=== PATIENT | male | born 1980 | race Caucasian/White ===

== ENCOUNTER 2023-08-22 15:05 | Outpatient (AMB) | payer OTHER, SELFPAY ==
--- NOTE | 2023-08-22 15:10 | MHC.PC.OV ---
Vital Signs 08/22/23 15:12 Height 5 ft 8 in Weight 194 lb 4 oz BMI 29.5 BP 120/72 Blood Pressure Location Lt brachial Position Sitting Pulse 87 Pulse Source Pulse Oximeter Pulse Oximetry (%) 97 Oxygen Delivery Method Room Air Intake Visit Reasons: DIRECTOR DESIGN-Requesting Physical Exam Intake Note: Patient is here as new patient, he is concerned about burning sensation of right sided shoulder blade for 5 weeks. Allergies No Known Allergies Allergy (Verified 08/22/23 15:15) Medication List - Last Reconciled 08/22/23 by Hermilo Prieto MD No Known Home Meds Tobacco use date assessed: 08/22/23 Dental Screening Dental Screen Date: 08/22/23 Did you have a dental visit in the last 12 months?: Yes Did you have a dental problem in the last 6 months where you did not have access to dental care?: No Was dental information given to patient?: Patient has dentist HPI DIRECTOR DESIGN-Requesting Physical Exam HPI Details New patient Prior PCP:?Albertina Troncoso Last office visit/CPE: 6 mos. CPE Oct. Acute issue(s): R shoulder pain x5 weeks PMHx: Sleep apnea and uses CPAP, HLD on artovastatin 40mg. Recent carbon monoxide exposure - was seen at ED. SurgHx: [place] teeth FHx: Mom: HLD. Dad: HTN. Brother: HTN SocHx: Nonsmoker. EtOH 1-2 drinks a week. No drugs. [facility] Medical History (Updated 08/22/23 @ 16:04 by Hermilo Prieto MD) High blood cholesterol Sleep apnea Surgical History (Updated 08/22/23 @ 15:20 by Liza Gale CMA) [place] teeth extracted Family History (Updated 08/22/23 @ 15:23 by Liza Gale CMA) Mother High cholesterol Father High blood pressure Arthritis Brother High blood pressure Social History Housing: Apartment Patient Tobacco Use Status: Never used Tobacco e-Cigarette/Vaping Use: Never Used service: No Current occupational status: employed Current occupation: pest control Cognitive needs: No Hearing needs: No Vision needs: Yes (Patient wears precription glasses.) Questionnaire PHQ-9 Over the last 2 weeks, how often have you been bothered by any of the following problems? 1. Little interest or pleasure in doing things: not at all 2. Feeling down, depressed, or hopeless: not at all 3. Trouble falling or staying asleep, or sleeping too much: several days 4. Feeling tired or having little energy: several days 5. Poor appetite or overeating: not at all 6. Feeling bad about yourself - or that you are a failure or have let yourself or your family down: not at all 7. Trouble concentrating on things, such as reading the newspaper or watching television: not at all 8. Moving or speaking so slowly that other people could have noticed. Or the opposite - being so fidgety or restless that you have been moving around a lot more than usual: not at all 9. Thoughts that you would be better off or of hurting yourself in some way: not at all Total score: 2 Depression Screening Interpretation: Negative Depression Screening Done: Yes 49171 - PHQ-9 Billing: Yes Source: Developed by Drs. Ming Draper, Marycarmen Foley, Flakito Bowen and colleagues, with an educational faraz from [employer]. Thrive Questionnaire Date Thrive assessed: 08/22/23 I am a: Patient What is your living situation today?: I have a steady place to live Within the past 12 months, did the food you bought not last and you didn't have the money to get more?: Never true Within the past 12 months, did you worry whether your food would run out before you got money to buy more?: Never true Do you have trouble paying for medicines?: No Do you have trouble getting transportation to medical appointments?: No Do you have trouble paying your heating and electricity bill?: No Do you have trouble taking care of your child, family member or friend?: No Do you have trouble with day-to-day activities such as bathing, preparing meals, shopping, managing finances, etc.?: No Are you currently unemployed and looking for a job?: No Are you interested in more education?: Yes THRIVE Score: 0 ISHAAN-7 AMB Questionnaire ISHAAN-7 Date ISHAAN - 7 assessed: 08/22/23 Feeling nervous, anxious, or on edge: 2 = More than half the days Not being able to stop or control worryin = Several days Worrying too much about different things: 1 = Several days Trouble relaxin = Several days Being so restless that it is hard to sit still: 0 = Not at all Becoming easily annoyed or irritable: 2 = More than half the days Feeling afraid as if something awful might happen: 2 = More than half the days Total ISHAAN-7 score (0-4 normal; 5-9 mild; 10-14 moderate; 15-21 severe): 9 Source: Developed by Drs. Ming Draper, Marycarmen Foley, Flakito Bowen and colleagues, with an educational faraz from [employer]. ISHAAN-7 Assessment Billing ISHAAN-7 Assessment Tool: ISHAAN-7 Assessment 29512 Review of Systems Const Denies chills, Denies fatigue, Denies fever(s), Denies headache(s) and Denies weakness ENT Denies dizziness and Denies headache(s) Card Denies chest pain, Denies lightheadedness, Denies dyspnea and Denies other (Palpitations) Resp Denies cough, Denies dyspnea, Denies wheezing and Denies other ( shortness of breath) Musc Denies numbness and Denies tingling Neuro Denies dizziness, Denies headache(s), Denies numbness, Denies tingling, Denies paresthesias and Denies weakness Psych Denies anxiety and Denies depression Endo Denies fatigue Aller/Immun Denies wheezing Physical exam (Primary Care) Vital Signs: Last Vital Signs Pulse 87 08/22/23 15:12 BP 120/72 08/22/23 15:12 Pulse Ox 97 08/22/23 15:12 Oxygen Delivery Method Room Air 08/22/23 15:12 BMI result Body Mass Index 29.5 Tobacco/Smoking Status: Tobacco use Status Tobacco use date assessed 08/22/23 08/22/23 15:31 Patient Tobacco Use Status Never used Tobacco 08/22/23 15:31 e-Cigarette/Vaping Use Never Used 08/22/23 15:31 PHQ-9: PHQ-9 Score PHQ-9: Total score 2 08/22/23 15:31 Depression Screening Interpretation: Negative Thrive Assessment: Date of Thrive Assessment Date Thrive assessed 08/22/23 08/22/23 15:31 Const General: no acute distress and well developed Nutritional Appearance: well nourished Orientation/consciousness: patient oriented x3 HENMT Head: Yes normocephalic and Yes atraumatic Eyes General: appearance normal, both eyes and all related structures Pupils: Equal, round and reactive pupils present EOM: EOMs intact bilaterally Resp Effort & Inspection: normal respiratory effort Auscultation: clear to auscultation bilaterally Cardio Rate: regular rate Rhythm: regular rhythm Heart sounds: S1 normal heart sound present, S2 normal heart sound present, no gallops, no murmurs and no rubs Neuro General: patient oriented x3 and gait normal Cranial nerves: Yes Equal, round and reactive pupils present Psych Affect: normal affect Assessment and Plan Assessment & Plan (1) Right shoulder pain: Code(s): M25.511 - Pain in right shoulder Plan: R shoulder pain?and?right?scapular?pain Check?x-ray NSAIDs,?ice/heat Only?gentle?stretching?until?he?start?physical?therapy Physical?therapy If?not?improving?will?refer?to?physiatry?or?Ortho (2) Pain of right scapula: Code(s): M89.8X1 - Other specified disorders of bone, shoulder Plan: Burning?pain?under?right?scapula Possible?dorsal?scapular?nerve?impingement vs subscapularis?muscle?strain Checking?x-rays?as?above?and?he?can?use?NSAIDs Referred?to?physical?therapy If?not?improving,?will?refer (3) Hyperlipidemia: Code(s): E78.5 - Hyperlipidemia, unspecified Plan: Patient?takes?atorvastatin?40?mg?daily Continue?atorvastatin?and?check?lipids (4) Sleep apnea: Code(s): G47.30 - Sleep apnea, unspecified Plan: Uses?CPAP?regularly Continue?CPAP (5) Laboratory exam ordered as part of routine general medical examination: Code(s): Z00.00 - Encounter for general adult medical examination without abnormal findings Plan: Check?labs Orders: Orders TSH reflex Free T4 Today Z00.00 - Encounter for general adult medical examination without abnormal findings UA and rflx microscopic Today Z00.00 - Encounter for general adult medical examination without abnormal findings XR shoulder RT min 2V Today M89.8X1 - Other specified disorders of bone, shoulder XR scapula RT Today M89.8X1 - Other specified disorders of bone, shoulder Comprehensive [place]. Panel Fast Today Z00.00 - Encounter for general adult medical examination without abnormal findings Lipid Panel Today Z00.00 - Encounter for general adult medical examination without abnormal findings Microalbumin, Random (w Creat) Today I10 - Essential (primary) hypertension Prostate Specific Antigen Scr Today Z12.5 - Encounter for screening for malignant neoplasm of prostate XR cervical spine 2V Today M89.8X1 - Other specified disorders of bone, shoulder Medications: New atorvastatin 40 mg PO DAILY 90 days 90 tabs 4RF meloxicam 15 mg PO DAILY 30 days 30 tabs 2RF Coding Level of Care Code New Pt Level 3 (19717) Diagnoses Right shoulder pain M25.511 Pain of right scapula M89.8X1 Hyperlipidemia E78.5 Sleep apnea G47.30 Laboratory exam ordered as part of routine general medical examination Z00.00 Additional Codes ISHAAN-7 Assessment Billing - ISHAAN-7 Assessment Tool: ISHAAN-7 Assessment 73338 ([id number])
[2023-08-22 15:12] VITALS: BP 120/72; PULSE 87; O2SAT 97; BMI 29.5
== END 2023-08-22 16:06 | disposition home or self-care (01) ==
PROVIDERS: PCP Family Medicine; Visit Provider Family Medicine
DX: M25.511 Pain in right shoulder (principal); M89.8X1 Other specified disorders of bone, shoulder; E78.5 Hyperlipidemia, unspecified; G47.30 Sleep apnea, unspecified; Z00.00 Encounter for general adult medical examination without abnormal findings
CPT/HCPCS: 99203

== ENCOUNTER 2023-08-23 08:43 | Outpatient (REF) | payer OTHER, SELFPAY ==
[2023-08-23 11:31] LABS: Appearance Urine Turbid; Color Urine Yellow; Glucose Urine UA Negative (Negative); Leukocyte Esterase Urine Negative (Negative); Nitrite Urine Negative (Negative); Specific Gravity - Urine 1.025 (1.005-1.025); Urine Blood Negative (Negative); Urine Ketones Negative (Negative); Urine Protein Trace mg/dL (Neg-Trace)
[2023-08-23 12:29] LABS: Alanine Aminotransferase 66 U/L (0-40); Albumin Level 4.6 g/dL (3.5-5.0); Alkaline Phosphatase 102 U/L (39-117); Anion Gap 12 (12-20); Aspartate Amino Transferase 27 U/L (5-37); Bilirubin Total 0.8 mg/dL (0.0-1.0); Blood Urea Nitrogen 15 mg/dL (9-16); Calcium 9.5 mg/dL (8.4-10.2); Carbon Dioxide 28 mmol/L (22-29); Chloride 105 mmol/L (96-108); Cholesterol 156 mg/dL (<200); Estimated Glomerular Filt Rate > 60; Glucose Fasting 115 mg/dL (60-99); HDL Cholesterol 28 mg/dL (>40); LDL Cholesterol Calculated 91 mg/dL (<100); Potassium 4.2 mmol/L (3.3-5.1); Sodium 141 mmol/L (135-145); Total Protein 7.1 g/dL (6.5-8.0); Triglycerides 188 mg/dL (<150)
[2023-08-23 12:43] LABS: Prostate Specific Antigen Scr 0.65 ng/mL (<0.05-4.0)
[2023-08-23 12:43] LABS: Creatinine Urine 250.83 mg/dL; Microalbum/Creatinine Ratio Ur 11.9 ug/mg cr (<30)
[2023-08-23 12:52] LABS: TSH reflex Free T4 0.97 uIU/mL (0.32-4.0)
== END 2023-08-23 08:44 | disposition home or self-care (01) ==
LOC: HO.WFDLDS 08:43
PROVIDERS: Visit Provider Family Medicine
DX: Z00.00 Encounter for general adult medical examination without abnormal findings (principal); Z12.5 Encounter for screening for malignant neoplasm of prostate; I10 Essential (primary) hypertension
CPT/HCPCS: 36415; 80053; 80061; 81003; 82043; 82570; 84153; 84443

== ENCOUNTER 2023-09-02 12:23 | Outpatient (REF) | payer OTHER, SELFPAY ==
--- NOTE | ~2023-09-02 | XR_ITS ---
EXAMINATION: XR CERVICAL SPINE CLINICAL INFORMATION: Pain COMPARISON: None available. TECHNIQUE: AP and lateral views of cervical spine FINDINGS: There is straightening of cervical lordosis most likely due to muscle spasm. Vertebral bodies are well aligned and intervertebral discs are preserved. Pedicles are intact. Soft tissues are unremarkable. There is no spondylolysis or spondylolisthesis. XR/XR cervical spine 2V IMPRESSION: Straightening of cervical lordosis is result of muscle spasm
--- NOTE | ~2023-09-02 | XR_ITS ---
EXAMINATION: XR SHOULDER, RIGHT CLINICAL INFORMATION: Pain in the right shoulder COMPARISON: None available. TECHNIQUE: AP external rotation, Grashey, scapular Y, and axillary views of the right shoulder. FINDINGS: The bones and soft tissues are normal. No fracture. Glenohumeral and acromioclavicular alignment is anatomic with normal joint space. No abnormal soft tissue calcifications. XR/XR shoulder RT min 2V IMPRESSION: Normal right shoulder.
--- NOTE | ~2023-09-02 | XR_ITS ---
EXAMINATION: XR SCAPULA, RIGHT CLINICAL INFORMATION: Right scapula pain COMPARISON: Right shoulder TECHNIQUE: AP and scapular Y views of the right scapula. FINDINGS: The bones and soft tissues are normal. No scapular fracture. Glenohumeral and acromioclavicular alignment is normal. XR/XR scapula RT IMPRESSION: Normal right scapula.
== END 2023-09-02 12:24 | disposition home or self-care (01) ==
LOC: HO.HMGCX 12:23
PROVIDERS: PCP Family Medicine; Visit Provider Family Medicine
DX: M25.511 Pain in right shoulder (principal); M62.838 Other muscle spasm
CPT/HCPCS: 72040; 73010; 73030

== ENCOUNTER → 2023-09-27 14:00 | Outpatient (AMB) | payer OTHER, SELFPAY ==
--- NOTE | 2023-09-27 10:33 | A.OFFPC_ITS ---
Intake Visit Reasons: lab and x-ray review Intake Note: Patient is scheduled for follow up on lab and radiology results. Allergies No Known Allergies Allergy (Verified 09/27/23 13:54) Tobacco use date assessed: 08/22/23 Dental Screening Dental Screen Date: 08/22/23 HPI lab and x-ray review HPI Details 43 y/o male presents to f/u labs via tel emedicine. Labs were drawn 08/23/23. Reviewed labs with pt. Elevated fasting glucose of 115. Elevated ALT of 66. Triglycerides 188. TC 156. LDL 91. HDL low at 28. He is on artovastatin 40mg daily. R shoulder x-ray 09/02/23 was fine. R scapula x-ray was fine. HPI Comments History of Present Illness Details Documentation assistance for Hermilo Prieto MD, was provided by [employer], [employer] on 09/27/2023 3:15 PM EST. I, Dr. Prieto, have read, observed, and verified documentation. [facility] Medical History High blood cholesterol Sleep apnea Surgical History [place] teeth extracted Family History Mother High cholesterol Father High blood pressure Arthritis Brother High blood pressure Social History Housing: Apartment Patient Tobacco Use Status: Never used Tobacco e-Cigarette/Vaping Use: Never Used service: No Current occupational status: employed Current occupation: pest control Cognitive needs: No Hearing needs: No Vision needs: Yes (Patient wears precription glasses.) Questionnaire Thrive Questionnaire Date Thrive assessed: 08/22/23 ISHAAN-7 AMB Questionnaire ISHAAN-7 Date ISHAAN - 7 assessed: 08/22/23 Source: Developed by Drs. Ming Draper, Marycarmen Foley, Flakito Bowen and colleagues, with an educational faraz from [employer]. Review of Systems Const Denies chills, Denies fatigue, Denies fever(s), Denies headache(s) and Denies weakness ENT Denies dizziness and Denies headache(s) Card Denies dyspnea Resp Denies cough, Denies dyspnea, Denies wheezing and Denies other (shortness of breath) Musc Denies numbness and Denies tingling Neuro Denies dizziness, Denies headache(s), Denies numbness, Denies tingling and Denies weakness Psych Denies anxiety and Denies depression Endo Denies fatigue Aller/Immun Denies wheezing Physical exam (Primary Care) Tobacco/Smoking Status: Tobacco use Status Tobacco use date assessed 08/22/23 09/27/23 10:33 Patient Tobacco Use Status Never used Tobacco 09/27/23 10:33 e-Cigarette/Vaping Use Never Used 09/27/23 10:33 Thrive Assessment: Date of Thrive Assessment Date Thrive assessed 08/22/23 09/27/23 10:33 Telehealth Telehealth Telehealth Platform: Telephone Location of provider rendering services: practice address Location of patient: address on file Patient Identification confirmed using: Name, : Yes Telehealth method: voice only Patient verbally consented to treatment: Yes Patient verbally consented to billing insurance company: Yes Patient informed of any privacy concerns related to visit: Yes Minutes spent on Phone/Video with Pt.: 18 Assessment and Plan Assessment & Plan (1) Elevated ALT measurement: Code(s): R74.01 - Elevation of levels of liver transaminase levels Plan: Elevated?ALT?and? patient?notes?that?he?has?had?elevated?liver?enzymes?in?the?past?with?prior?PCP He?said?he?had?a?workup?that?included?a?hepatitis?clinic?but?was?cleared?regardi ng?hepatitis Will?repeat?liver?enzymes?and?discuss?at?next?visit (2) Elevated fasting glucose: Code(s): R73.01 - Impaired fasting glucose Plan: Will?repeat?fasting?blood?sugar?along?with?an?A1c Patient?has?no?family?history?or?prior?history?of?blood?sugar?problems. (3) Low HDL (under 40): Code(s): E78.6 - Lipoprotein deficiency Plan: Encouraged?exercise (4) Hyperlipidemia: Code(s): E78.5 - Hyperlipidemia, unspecified Plan: High?triglycerides?and?may?be?related?to?elevated?fasting?blood?sugar Rechecking?lipid (5) Right shoulder pain: Code(s): M25.511 - Pain in right shoulder Plan: Ongoing?right?shoulder?pain?though?meloxicam?did?help. X-rays?did?not?show?any?bony?injury Start?physical?therapy Ice/heat Continue?NSAIDs Orders: Orders PT Evaluation and Treatment Today M25.511 - Pain in right shoulder, M89.8X1 - Other specified disorders of bone, shoulder Lipid Panel Today Z00.00 - Encounter for general adult medical examination without abnormal findings Comprehensive [place]. Panel Fast Today Z00.00 - Encounter for general adult medical examination without abnormal findings Hemoglobin A1c Today R73.01 - Impaired fasting glucose Medications: Refilled meloxicam 15 mg PO DAILY 30 days 30 tabs 2RF M25.511 - Pain in right shoulder Coding Level of Care Code Tele Est Pt Level 2 (32660) Diagnoses Elevated ALT measurement R74.01 Elevated fasting glucose R73.01 Low HDL (under 40) E78.6 Hyperlipidemia E78.5 Right shoulder pain M25.511
== END ==
PROVIDERS: PCP Family Medicine; Visit Provider Family Medicine
DX: R74.01 Elevation of levels of liver transaminase levels (principal); R73.01 Impaired fasting glucose; E78.6 Lipoprotein deficiency; E78.5 Hyperlipidemia, unspecified; M25.511 Pain in right shoulder
CPT/HCPCS: 99442

== ENCOUNTER 2023-10-28 10:53 | Outpatient (AMB) | payer OTHER, SELFPAY ==
[2023-10-28 10:56] VITALS: BP 120/68; PULSE 83; O2SAT 98; BMI 28.8
--- NOTE | 2023-10-28 10:56 | A.OFFPC_ITS ---
Vital Signs 10/28/23 10:56 Height 5 ft 8 in Weight 189 lb 2 oz BMI 28.8 BP 120/68 Blood Pressure Location Lt brachial Position Sitting Pulse 83 Pulse Source Pulse Oximeter Pulse Oximetry (%) 98 Oxygen Delivery Method Room Air Intake Visit Reasons: CPE with f/u labs and health maintenance 30 mins Intake Note: Patient is here for his physical, did not get labs done, but fasted, and will get labs done today. Allergies No Known Allergies Allergy (Verified 10/28/23 10:59) Medication List - Last Reconciled 10/28/23 by Hermilo Prieto MD atorvastatin 40 mg PO DAILY 90 days meloxicam 15 mg PO DAILY 30 days Tobacco use date assessed: 10/28/23 Dental Screening Dental Screen Date: 08/22/23 HPI CPE with f/u labs and health maintenance 30 mins HPI Details 43 y/o male presents for a CPE with f/u labs and health maintenance. Labs were drawn 08/23/23. Reviewed labs with pt. Elevated fasting glucose of 115. Elevated ALT of 66. Triglycerides 188. TC 156. LDL 91. HDL low at 28. He is on artovastatin 40mg daily. Pt reports ongoing R shoulder pain and pt reports physical therapy has not called him yet. He does note has improved. [facility] Medical History High blood cholesterol Sleep apnea Surgical History [place] teeth extracted Family History Mother High cholesterol Father High blood pressure Arthritis Brother High blood pressure Social History Housing: Apartment Patient Tobacco Use Status: Never used Tobacco e-Cigarette/Vaping Use: Never Used service: No Current occupational status: employed Current occupation: pest control Cognitive needs: No Hearing needs: No Vision needs: Yes (Patient wears precription glasses.) Questionnaire Thrive Questionnaire Date Thrive assessed: 08/22/23 ISHAAN-7 AMB Questionnaire ISHAAN-7 Date ISHAAN - 7 assessed: 08/22/23 Source: Developed by Drs. Ming Draper, Marycarmen Foley, Flakito Bowen and colleagues, with an educational faraz from [employer]. Review of Systems Const Denies chills, Denies fatigue, Denies fever(s), Denies headache(s) and Denies weakness Eyes Denies change in vision ENT Denies dizziness, Denies headache(s), Denies hearing loss, Denies nasal congestion, Denies sinus pain, Denies sinus pressure and Denies sore throat Card Denies chest pain, Denies lightheadedness, Denies dyspnea and Denies other (palpitations) Resp Denies cough, Denies dyspnea and Denies wheezing GI Denies abdominal pain, Denies melena, Denies hematochezia, Denies change in bowel habits, Denies dyspepsia and Denies nausea Denies hematuria and Denies dysuria Musc Denies abnormal gait, Denies myalgias, Denies arthralgias, Denies numbness and Denies tingling Skin/Breast Denies rash, Denies unusual bruising and Denies wounds Neuro Denies abnormal gait, Denies dizziness, Denies headache(s), Denies memory loss, Denies numbness, Denies Sensory deficit (Neuro), Denies tingling and Denies weakness Psych Denies anxiety, Denies depression and Denies memory loss Endo Denies cold intolerance, Denies fatigue, Denies heat intolerance, Denies polydipsia and Denies polyuria Osmin/Lymph Denies easy bleeding and Denies easy bruising Aller/Immun Denies wheezing Physical exam (Primary Care) Vital Signs: Last Vital Signs Pulse 83 10/28/23 10:56 BP 120/68 10/28/23 10:56 Pulse Ox 98 10/28/23 10:56 Oxygen Delivery Method Room Air 10/28/23 10:56 BMI result Body Mass Index 28.8 Tobacco/Smoking Status: Tobacco use Status Tobacco use date assessed 10/28/23 10/28/23 11:00 Patient Tobacco Use Status Never used Tobacco 10/28/23 11:00 e-Cigarette/Vaping Use Never Used 10/28/23 11:00 Thrive Assessment: Date of Thrive Assessment Date Thrive assessed 08/22/23 10/28/23 11:00 Const General: no acute distress, well developed, alert and awake Nutritional Appearance: well nourished Orientation/consciousness: patient oriented x3 HENMT Head: Yes normocephalic and Yes atraumatic Ears: hearing grossly normal bilaterally and TM's normal bilaterally General nose exam: Normal external nose present and Normal nares present Mouth: Normal oral and palatal mucosa present and moist mucous membranes Teeth and gingiva: dentition normal Throat: Yes posterior oropharynx normal Eyes General: appearance normal, both eyes and all related structures Pupils: Equal, round and reactive pupils present and Pupil accommodation reflex normal EOM: EOMs intact bilaterally Neck Neck: Yes normal visual inspection, Yes no lymphadenopathy and Yes trachea midline Thyroid: Thyroid normal Carotids: no bruits Lymphatic: no lymphadenopathy noted Chest Chest palpation & inspection: normal inspection of the chest Resp Effort & Inspection: normal respiratory effort Auscultation: clear to auscultation bilaterally Cardio Rate: regular rate Rhythm: regular rhythm Heart sounds: S1 normal heart sound present, S2 normal heart sound present, no gallops, no murmurs and no rubs Bruits: no abdominal aortic bruits and no carotid bruits GI Palpation (GI): No Abdominal aortic bruit present, Soft to palpation, nontender, No hepatosplenomegaly present and No Rebound tenderness present Auscultation: normal bowel sounds General: Yes no CVA tenderness Back/Spine/Pelvis Back: no CVA tenderness Cervical Spine: cervical ROM normal and No Cervical spine tenderness Thoracic/Lumbar Spine: thoraco-lumbar ROM normal, No pain with thoraco-lumbar ROM, No thoracic spinal tenderness and No lumbar spinal tenderness Skin Lesions: no lesions Rashes: no rashes Trauma: no lacerations or abrasions Wounds: no wounds Nails: normal Neuro General: patient oriented x3 Cranial nerves: Yes Equal, round and reactive pupils present Cognition (Neuro): normal cognition Gait exam (Neuro): Normal gait present Motor exam (neuro): 5/5 motor strength present throughout Sensory Exam: No Sensory deficit (Neuro) Deep tendon reflexes (DTR's): Right patellar reflex intensity grade: 2+ and Left patellar reflex intensity grade: 2+ Extrem General: Yes normal to inspection and No edema Psych Appearance: grossly normal Affect: normal affect Attitude: cooperative Thought process: Normal thought process present Assessment and Plan Assessment & Plan (1) Adult general medical examination: Code(s): Z00.00 - Encounter for general adult medical examination without abnormal findings Plan: 43-year-old?male?presents?for?complete?physical?exam Encouraged?healthy?diet?with?active?lifestyle?and?plenty?of?exercise (2) Elevated fasting glucose: Code(s): R73.01 - Impaired fasting glucose Plan: Patient?had?elevated?fasting?blood?sugar?on?lab?work He?will?get?this?repeated?fasting?today. Also?checking?an?A1c (3) Elevated ALT measurement: Code(s): R74.01 - Elevation of levels of liver transaminase levels Plan: Elevated?liver?enzymes?and?patient?notes?that?he?has?had?a?history?of?this?and?p rior?workup. Rechecking?liver?enzymes (4) Right shoulder pain: Code(s): M25.511 - Pain in right shoulder Plan: Ongoing?right?posterior?shoulder?and?scapular?pain. Had?referred?him?for?physical?therapy?bu t?he?has?not?had?this?scheduled?yet.??Will?have?the?office?get?him?scheduled?tod ay (5) Hyperlipidemia: Code(s): E78.5 - Hyperlipidemia, unspecified Plan: Elevated?lipids?including?triglycerides Rechecking?this (6) Screening for prostate cancer: Code(s): Z12.5 - Encounter for screening for malignant neoplasm of prostate Plan: PSA?was?within?normal?range Will?continue?annual?screening Coding Level of Care Code Est Pt Level 3 (32526) Est Pt Prev Care 40-64y(93124) Diagnoses Adult general medical examination Z00.00 Elevated fasting glucose R73.01 Elevated ALT measurement R74.01 Right shoulder pain M25.511 Hyperlipidemia E78.5 Screening for prostate cancer Z12.5
== END 2023-10-28 11:26 | disposition home or self-care (01) ==
PROVIDERS: PCP Family Medicine; Visit Provider Family Medicine
DX: Z00.00 Encounter for general adult medical examination without abnormal findings (principal); R73.01 Impaired fasting glucose; R74.01 Elevation of levels of liver transaminase levels; M25.511 Pain in right shoulder; E78.5 Hyperlipidemia, unspecified; Z12.5 Encounter for screening for malignant neoplasm of prostate
CPT/HCPCS: 99213; 99396

== ENCOUNTER 2023-10-28 11:47 | Outpatient (REF) | payer OTHER, SELFPAY ==
[2023-10-28 14:56] LABS: Estimated Average Glucose 126 mg/dL
[2023-10-28 15:07] LABS: Alanine Aminotransferase 72 U/L (0-40); Albumin Level 4.7 g/dL (3.5-5.0); Alkaline Phosphatase 111 U/L (39-117); Anion Gap 13 (12-20); Aspartate Amino Transferase 34 U/L (5-37); Blood Urea Nitrogen 16 mg/dL (9-16); Calcium 10.1 mg/dL (8.4-10.2); Carbon Dioxide 27 mmol/L (22-29); Chloride 104 mmol/L (96-108); Cholesterol 144 mg/dL (<200); Estimated Glomerular Filt Rate > 60; Glucose Fasting 98 mg/dL (60-99); HDL Cholesterol 32 mg/dL (>40); LDL Cholesterol Calculated 78 mg/dL (<100); Potassium 3.9 mmol/L (3.3-5.1); Sodium 140 mmol/L (135-145); Total Protein 7.3 g/dL (6.5-8.0); Triglycerides 174 mg/dL (<150)
[2023-10-28 15:14] LABS: Bilirubin Total 0.9 mg/dL (0.0-1.0)
== END 2023-10-28 11:48 | disposition home or self-care (01) ==
LOC: HO.WFDLDS 11:47
PROVIDERS: Visit Provider Family Medicine
DX: Z00.00 Encounter for general adult medical examination without abnormal findings (principal); R73.01 Impaired fasting glucose
CPT/HCPCS: 36415; 80053; 80061; 83036

== ENCOUNTER → 2023-11-29 16:04 | Outpatient (AMB) | payer OTHER, SELFPAY ==
--- NOTE | 2023-11-29 16:05 | MHC.PC.OV ---
Intake Visit Reasons: telethealth follow up labs Allergies No Known Allergies Allergy (Verified 11/29/23 16:05) Tobacco use date assessed: 10/28/23 Dental Screening Dental Screen Date: 08/22/23 HPI telethealth follow up labs HPI Details 43 y/o male presents to f/u CPE-labs via telemedicine. Labs drawn 10/28/23. Reviewed labs with pt. Elevated ALT of 72. Triglycerides 174. TC 144. LDL 78. HDL low at 32. He is on artovastatin 40mg daily. A1c 6.0% - pre-diabetes range. [facility] Medical History High blood cholesterol Sleep apnea Surgical History [place] teeth extracted Family History Mother High cholesterol Father High blood pressure Arthritis Brother High blood pressure Social History Housing: Apartment Patient Tobacco Use Status: Never used Tobacco e-Cigarette/Vaping Use: Never Used service: No Current occupational status: employed Current occupation: pest control Cognitive needs: No Hearing needs: No Vision needs: Yes (Patient wears precription glasses.) Questionnaire PHQ-9 Over the last 2 weeks, how often have you been bothered by any of the following problems? 1. Little interest or pleasure in doing things: not at all 2. Feeling down, depressed, or hopeless: not at all 3. Trouble falling or staying asleep, or sleeping too much: several days 4. Feeling tired or having little energy: several days 5. Poor appetite or overeating: not at all 6. Feeling bad about yourself - or that you are a failure or have let yourself or your family down: not at all 7. Trouble concentrating on things, such as reading the newspaper or watching television: not at all 8. Moving or speaking so slowly that other people could have noticed. Or the opposite - being so fidgety or restless that you have been moving around a lot more than usual: not at all 9. Thoughts that you would be better off or of hurting yourself in some way: not at all Total score: 2 Depression Screening Interpretation: Negative Depression Screening Done: Yes 96267 - PHQ-9 Billing: Yes Source: Developed by Drs. Ming Draper, Flakito Mon and colleagues, with an educational faraz from [employer]. Thrive Questionnaire Date Thrive assessed: 08/22/23 I am a: Patient What is your living situation today?: I have a steady place to live Within the past 12 months, did the food you bought not last and you didn't have the money to get more?: Never true Within the past 12 months, did you worry whether your food would run out before you got money to buy more?: Never true Do you have trouble paying for medicines?: No Do you have trouble getting transportation to medical appointments?: No Do you have trouble paying your heating and electricity bill?: No Do you have trouble taking care of your child, family member or friend?: No Do you have trouble with day-to-day activities such as bathing, preparing meals, shopping, managing finances, etc.?: No Are you currently unemployed and looking for a job?: No Are you interested in more education?: Yes THRIVE Score: 0 ISHAAN-7 AMB Questionnaire ISHAAN-7 Date ISHAAN - 7 assessed: 08/22/23 Feeling nervous, anxious, or on edge: 2 = More than half the days Not being able to stop or control worryin = Several days Worrying too much about different things: 1 = Several days Trouble relaxin = Several days Being so restless that it is hard to sit still: 0 = Not at all Becoming easily annoyed or irritable: 2 = More than half the days Feeling afraid as if something awful might happen: 2 = More than half the days Total ISHAAN-7 score (0-4 normal; 5-9 mild; 10-14 moderate; 15-21 severe): 9 Source: Developed by Drs. Ming Draper, Flakito Mon and colleagues, with an educational faraz from [employer]. ISHAAN-7 Assessment Billing ISHAAN-7 Assessment Tool: ISHAAN-7 Assessment 14501 Physical exam (Primary Care) Tobacco/Smoking Status: Tobacco use Status Tobacco use date assessed 10/28/23 11/29/23 16:06 Patient Tobacco Use Status Never used Tobacco 11/29/23 16:06 e-Cigarette/Vaping Use Never Used 11/29/23 16:06 PHQ-9: PHQ-9 Score PHQ-9: Total score 2 11/29/23 16:19 Depression Screening Interpretation: Negative Thrive Assessment: Date of Thrive Assessment Date Thrive assessed 08/22/23 11/29/23 16:06 Telehealth Telehealth Telehealth Platform: Telephone Location of provider rendering services: practice address Location of patient: address on file Patient Identification confirmed using: Name, : Yes Telehealth method: voice only Patient verbally consented to treatment: Yes Patient verbally consented to billing insurance company: Yes Patient informed of any privacy concerns related to visit: Yes Minutes spent on Phone/Video with Pt.: 11 Assessment and Plan Assessment & Plan (1) Hyperlipidemia: Code(s): E78.5 - Hyperlipidemia, unspecified Plan: Triglycerides?are?still?a?bit?high?though?they?have?decreased?a?little HDL?is?a?bit?low?and?I?encouraged?more?exercise He?is?on?atorvastatin?and?his?total?cholesterol?and?LDL?appear?controlled Continue?current?medication (2) Low HDL (under 40): Code(s): E78.6 - Lipoprotein deficiency Plan: As?above (3) Elevated ALT measurement: Code(s): R74.01 - Elevation of levels of liver transaminase levels Plan: ALT?has?risen?slightly. Will?check?an?ultrasound?with?elastography Likely?hepatic?steatosis Will?call?patient?if?action?is?required,?otherwise?will?follow-up?at?next?visit?in?a?few?months (4) Pre-diabetes: Code(s): R73.03 - Prediabetes Plan: A1c?in?pre?diabetes?range Encouraged?a?diet?lower?in?sugars?and?starches Encouraged?exercise?and?some?weight?loss Will?follow-up?in?3?months Orders: Orders US abdomen souza w elastography Today R74.01 - Elevation of levels of liver transaminase levels Hemoglobin A1c Today R73.01 - Impaired fasting glucose, R73.03 - Prediabetes Lipid Panel Today E78.5 - Hyperlipidemia, unspecified, Z00.00 - Encounter for general adult medical examination without abnormal findings Comprehensive Morris. Panel Fast Today R73.03 - Prediabetes, Z00.00 - Encounter for general adult medical examination without abnormal findings Coding Level of Care Code Tele Est Pt Level 2 (27931) Diagnoses Hyperlipidemia E78.5 Low HDL (under 40) E78.6 Elevated ALT measurement R74.01 Pre-diabetes R73.03 Additional Codes ISHAAN-7 Assessment Billing - ISHAAN-7 Assessment Tool: ISHAAN-7 Assessment [id number] ([id number])
== END ==
LOC: HO.HMGFM 16:04
PROVIDERS: PCP Family Medicine; Visit Provider Family Medicine
DX: E78.5 Hyperlipidemia, unspecified (principal); E78.6 Lipoprotein deficiency; R74.01 Elevation of levels of liver transaminase levels; R73.03 Prediabetes
CPT/HCPCS: 99442

== ENCOUNTER 2023-12-23 08:29 | Outpatient (REF) | payer OTHER, SELFPAY ==
--- NOTE | ~2023-12-23 | US_ITS ---
EXAMINATION: US ABDOMEN LIMITED WITH LIVER ELASTOGRAPHY CLINICAL INFORMATION: Elevated transaminase. COMPARISON: None available. TECHNIQUE: Real-time imaging of the abdominal viscera. Noninvasive ultrasound liver fibrosis assessment is performed using [place] ElastPQ point quantification shear wave elastography (pSWE) with a 5 MHz transducer. Multiple elastography samples are obtained. FINDINGS: PANCREAS: The visualized pancreatic head and body are normal in appearance. The remainder of the pancreas is obscured from visualization by the overlying bowel gas. LIVER: Normal. The liver demonstrates normal size and contour but with increased echogenicity consistent with hepatic steatosis. No focal lesion or intrahepatic biliary duct dilatation. The right lobe measures 14.8 cm in length. The left lobe measures 12.9 cm in length. Shear wave elastography provides a median stiffness of 1.9 m/s (reference: normal median stiffness is 0.81 - 1.22 m/s). The IQR/median stiffness to assess sampling precision is 0.09 (reference: optimal IQR/median stiffness is under 0.3). GALLBLADDER: Normal. The gallbladder is physiologically distended without evidence of stones, sludge, polyps, wall thickening or pericholecystic fluid. COMMON BILE DUCT: Normal in caliber measuring 0.2 cm in diameter. RIGHT KIDNEY: Normal. No hydronephrosis. No renal calculi or focal parenchymal lesions. The kidney measures 11.4 cm in maximum dimension. FREE FLUID: None. US/US abdomen souza w elastography IMPRESSION: 1. Hepatic steatosis. 2. Elastography: Liver elastography measurements are consistent with a moderate risk for clinically significant liver fibrosis (METAVIR Stage F2-F3). Electronically signed by: Seth Dawn MD 01/09/2024 09:57 PM EDT
== END 2023-12-23 08:30 | disposition home or self-care (01) ==
LOC: HO.US 08:29
PROVIDERS: PCP Family Medicine; Visit Provider Family Medicine
DX: R74.01 Elevation of levels of liver transaminase levels (principal)
CPT/HCPCS: 76705; 76981

== ENCOUNTER 2023-12-30 08:00 | Outpatient (RCR) | payer OTHER, SELFPAY | END 2024-05-29 09:34 | disposition home or self-care (01) | LOC: HO.PTWFD 08:00 | PROVIDERS: PCP Family Medicine; Visit Provider Family Medicine | DX: M25.511 Pain in right shoulder (principal); M89.8X1 Other specified disorders of bone, shoulder | CPT/HCPCS: 97012; 97110; 97140; 97162; 97530 ==

== ENCOUNTER 2024-03-24 08:25 | Outpatient (AMB) | payer OTHER, SELFPAY ==
--- NOTE | 2024-03-24 08:37 | AM.OFFWIN_ITS ---
Intake Vital Signs 03/24/24 08:40 03/24/24 09:04 Height 5 ft 8 in Weight 190 lb 2 oz BMI 28.9 BP 158/87 H 138/80 Blood Pressure Location Lt brachial Lt brachial Position Sitting Sitting Respiration 14 Pulse 83 Pulse Source Pulse Oximeter Pulse Oximetry (%) 97 Oxygen Delivery Method Room Air Intake Visit Reasons: est/lightheaded/nausea Intake Note: Patient complaining of nauseas, dizzy, tired, hungry all the time and feeling gas x 2 days. Patient Tobacco Use Status: Never used Tobacco Aircraft Dispatcher Required: No Allergies No Known Allergies Allergy (Verified 03/24/24 09:00) Medication List - Last Reconciled 03/24/24 by LIZZY Hodges-JODI atorvastatin 40 mg PO DAILY 90 days meloxicam 15 mg PO DAILY 30 days Do you need a note to return to daycare/school/sports/work: No HPI HPI Comments History of Present Illness Details Chief Complaint History of Present Illness The patient is a 44-year-old male presenting with dizziness, fatigue, and gastrointestinal symptoms. The dizziness has been intermittent, associated with rising quickly, and does not have associated nausea that leads to vomiting. The patient feels generally unwell, describing symptoms of sluggishness and abnormal hunger upon waking, as well as bloating and excessive gas, especially in the mornings. This gastrointestinal discomfort is accompanied by frequent burping and flatulence. He reports a change in bowel habits over the past few weeks, with stools described as having a softer consistency tirso to soft-serve ice cream, though there is no presence of blood. His appetite remains high, and he still feels hungry post meals. The patient denies any abdominal pain except transient discomfort related to hunger. Past laboratory studies in October indicated concerns for prediabetes, with an A1c of 6.0, and elevated liver enzymes, specifically an ALT of 72. Liver elastography performed in December reported hepatic steatosis with a moderate risk of liver fibrosis. The patient has a history of anxiety, which has been heightened due to current health concerns. He experiences no sleep disruption currently managed with a CPAP machine for sleep apnea. Social History - Occupation: Works in [employer], req uiring moderate physical activity and driving. - Alcohol: Consumes alcohol socially, mo st recently abstinent for a few days. - Diet: Primarily consumes black coffee, water, and a diet comprising hard- boiled eggs, almonds, granola bars, occasionally pizza or chips. - Lifestyle: Attempts home-prepared meal s to manage weight. - Sleep: Utilizes CPAP for previously di agnosed sleep apnea, significantly improving sleep quality. - Exercise: Activity level consistent wi job requirements Physical Exam - Vital Signs- Blood pressure rechecked at 138/80. - Eyes- Scleras nonicteric bilat, no nys tagmus - Mouth - MMM - Abdomen- Soft, nontender,hyperactive b owel sounds, no hepatomegaly, no peritoneal signs - Skin- PWD Results - Labs: A1c of 6.0 in October, ALT of 72. Plan 1. Dizziness and Gastrointestinal Sympto ms: - Perform stool study to rule out Helicobacter pylori infection. 2. Prediabetes: - Reevaluation of A1c le vels to monitor glycemic control. 3. Hepatic Steatosis: - Referral to [facility] for further assessment and management considering liver elastography findings. 4. Anxiety: - Acknowledged as contributi ng to symptom anxiety; therapeutic options reviewed. 5. Follow-up Care: - Telehealth follow-u p scheduled to discuss laboratory results and the next steps based on findings. Patient was informed and verbally consented to the use of an ambient scribe for clinic note documentation during this visit. Discussion Notes During the consultation, I have informed the patient about investigating dizziness and gastrointestinal symptoms with laboratory tests and a stool study to check for possible Helicobacter pylori infection. There was a clear communication regarding the referral to a health coordinator for addressing hepatic steatosis based on previous elastography. I explained that these findings require attention to exclude significant liver conditions. The possibility of Helicobacter pylori being the cause of the symptoms was discussed, and the simplicity of its treatment was noted. We agreed on reassessing prediabetes status with current A1c levels. The patient has understood and consented to the proposed plan, including telehealth follow-up. Patient Instructions - Proceed to the lab for blood tests and collect the stool sample kit. - Return the stool sample promptly for a nalysis. - Continue with current dietary habits u ntil further results are discussed. - Follow up via telehealth for lab resul ts on Saturday or Saturday. - Present to the clinic sooner if sympto ms worsen or new symptoms arise. This note is constructed using voice recognition software. While every effort has been made to ensure accuracy in airport planner, still errors may have been included Sometimes, these errors may affect the content or meaning of the given sentence . Total time spent caring for the patient today was 30 minutes. This includes time spent before the visit reviewing the chart, time spent during the visit, and time spent after the visit on documentation [facility] Medical History High blood cholesterol Sleep apnea Surgical History [place] teeth extracted Family History Mother High cholesterol Father High blood pressure Arthritis Brother High blood pressure Social History Housing: Apartment Patient Tobacco Use Status: Never used Tobacco e-Cigarette/Vaping Use: Never Used service: No Current occupational status: employed Current occupation: pest control Cognitive needs: No Hearing needs: No Vision needs: Yes (Patient wears precription glasses.) Physical Exam Vital Signs: Last Vital Signs Pulse 83 03/24/24 08:40 Resp 14 03/24/24 08:40 BP 158/87 H 03/24/24 08:40 Pulse Ox 97 03/24/24 08:40 Oxygen Delivery Method Room Air 03/24/24 08:40 BMI result Body Mass Index 28.9 Assessment & Plan Assessment & Plan (1) Light-headed feeling: Code(s): R42 - Dizziness and giddiness (2) Gas bloat syndrome: Code(s): K92.89 - Other specified diseases of the digestive system (3) Hepatic steatosis: Code(s): K76.0 - Fatty (change of) liver, not elsewhere classified (4) Pre-diabetes: Code(s): R73.03 - Prediabetes Plan . Orders: Orders Amylase Today K76.0 - Fatty (change of) liver, not elsewhere classified, K92.89 - Other specified diseases of the digestive system, R73.03 - Prediabetes Hepatitis A,B,C Profile Today K76.0 - Fatty (change of) liver, not elsewhere classified, K92.89 - Other specified diseases of the digestive system, R73.03 - Prediabetes H pylori Ag Stool Today K76.0 - Fatty (change of) liver, not elsewhere classified, K92.89 - Other specified diseases of the digestive system, R73.03 - Prediabetes Hemoglobin A1c Today K76.0 - Fatty (change of) liver, not elsewhere classified, K92.89 - Other specified diseases of the digestive system, R73.03 - Prediabetes Comprehensive Met. Panel Today K76.0 - Fatty (change of) liver, not elsewhere classified, R42 - Dizziness and giddiness, R73.03 - Prediabetes Lipase Today K76.0 - Fatty (change of) liver, not elsewhere classified, K92.89 - Other specified diseases of the digestive system, R73.03 - Prediabetes Liver Panel Today K76.0 - Fatty (change of) liver, not elsewhere classified, K92.89 - Other specified diseases of the digestive system, R73.03 - Prediabetes Referrals Gastroenterology Referral K76.0 - Fatty (change of) liver, not elsewhere classified Coding Level of Care Code Est Pt Level 4 (99947) Diagnoses Light-headed feeling R42 Gas bloat syndrome K92.89 Hepatic steatosis K76.0 Pre-diabetes R73.03
[2024-03-24 08:40] VITALS: BP 158/87; PULSE 83; RESP 14; O2SAT 97; BMI 28.9
[2024-03-24 09:04] VITALS: BP 138/80
== END 2024-03-24 09:15 | disposition home or self-care (01) ==
LOC: HO.HMCWIW 08:25
PROVIDERS: PCP Family Medicine; Visit Provider Nurse Practitioner Family
DX: R42 Dizziness and giddiness (principal); K92.89 Other specified diseases of the digestive system; K76.0 Fatty (change of) liver, not elsewhere classified; R73.03 Prediabetes

== ENCOUNTER → 2024-03-24 08:25 | Outpatient (BNVA) | payer OTHER, SELFPAY | PROVIDERS: PCP Family Medicine; Visit Provider Nurse Practitioner Family ==

== ENCOUNTER 2024-03-24 09:47 | Outpatient (REF) | payer OTHER, SELFPAY ==
[2024-03-24 11:33] LABS: Estimated Average Glucose 134 mg/dL; Hemoglobin A1C 181.9306 umol/L; Hemoglobin A1c % 6.3 % (<6.0); Total Hemoglobin (HGBA1C) 3968.1111 umol/L
[2024-03-24 15:59] LABS: Alanine Aminotransferase 70 U/L (0-40); Albumin Level 4.8 g/dL (3.5-5.0); Anion Gap 14 (12-20); Aspartate Amino Transferase 35 U/L (5-37); Bilirubin Direct 0.2 mg/dL (0.0-0.5); Bilirubin Total 0.7 mg/dL (0.0-1.0); Blood Urea Nitrogen 18 mg/dL (9-16); Calcium 10.2 mg/dL (8.4-10.2); Carbon Dioxide 25 mmol/L (22-29); Chloride 104 mmol/L (96-108); Estimated Glomerular Filt Rate > 60; Glucose Random 124 mg/dL (60-115); Lipase 19 U/L (8-78); Potassium 4.4 mmol/L (3.3-5.1); Sodium 139 mmol/L (135-145); Total Protein 7.4 g/dL (6.5-8.0)
[2024-03-24 17:27] LABS: Alkaline Phosphatase 98 U/L (39-117); Amylase 39 U/L (28-100)
[2024-03-25 03:56] LABS: HBS Num1 3.49 mIU/mL (0-7.99); HBc Num1 0.12 S/CO (0.00-0.79); HBsAGNum1 0.42 S/CO (0.00-0.99); Hepatitis A Antibody IgM 0.15 Index (0-0.79); Hepatitis B Core Antibody Nonreactive (Nonreactive); Hepatitis B Surface Antigen Negative (Negative); ~HepC Num1 0.09 S/CO (0.00-0.79); ~Hepatitis A Antibody IgM Nonreactive (Nonreactive); ~Hepatitis B Surface Antibody NONREACTIVE (Nonreactive); ~Hepatitis C Antibody Nonreactive (Nonreactive)
== END 2024-03-24 09:48 | disposition home or self-care (01) ==
LOC: HO.WFDLDS 09:47
PROVIDERS: Visit Provider Nurse Practitioner Family
DX: K92.89 Other specified diseases of the digestive system (principal); R73.03 Prediabetes; K76.0 Fatty (change of) liver, not elsewhere classified; R42 Dizziness and giddiness
CPT/HCPCS: 36415; 80053; 82150; 82248; 83036; 83690; 86704; 86706; 86709; 86803; 87340

== ENCOUNTER 2024-03-25 12:11 | Outpatient (REF) | payer OTHER, SELFPAY | END 2024-03-25 12:12 | disposition home or self-care (01) | LOC: HO.LNP 12:11 | PROVIDERS: Visit Provider Nurse Practitioner Family | DX: K92.89 Other specified diseases of the digestive system (principal); R73.03 Prediabetes; K76.0 Fatty (change of) liver, not elsewhere classified | CPT/HCPCS: 87338 ==

== ENCOUNTER → 2024-03-27 15:21 | Outpatient (AMB) | payer OTHER, SELFPAY ==
--- NOTE | 2024-03-27 15:13 | A.OFFPC_ITS ---
Intake Visit Reasons: sat or saturday telehealth Lab results Intake Note: Lab results. Allergies No Known Allergies Allergy (Verified 03/27/24 16:50) Medication List - Last Reconciled 03/27/24 by ANDRES Hodges atorvastatin 40 mg PO DAILY 90 days meloxicam 15 mg PO DAILY 30 days Tobacco use date assessed: 10/28/23 Dental Screening Dental Screen Date: 08/22/23 HPI HPI Comments History of Present Illness Details History of Present Illness The patient is a 44-year-old male presenting for a follow-up to discuss various laboratory results. The patient has a history of elevated alanine aminotransferase (ALT) levels, which previously measured at 72 and have now slightly improved to 70. The patient has also been monitored for prediabetes, with a current hemoglobin A1c of 6.3%, an increase from 6% in October. Although he maintains dietary measures to limit sugar intake, his A1c indicates a higher average blood glucose over the past three months. The patient reports attending a [employer] constitution party recently but notes that his regular diet does not typically include high-sugar foods. The patient is also being followed for fatty liver disease, with prior rama stography showing some liver stiffness, necessitating further gastroenterological evaluation. Current laboratory findings also show that renal function, other liver enzymes, and electrolytes remain within normal limits. A recent stool test for Helicobacter pylori returned negative, and a referral to a supervisor home restoration service for further assessment of liver stiffness and dietary consultation is in proc ess. Review of Systems - General: Denies any changes in appetit e or weight. - Endocrine: Reports concern over recent A1c results. - Gastrointestinal: Denies any abdominal pain or changes in bowel movements. Note: This physical exam was conducted in conjunction with the patient via our Telehealth platform. Plan - Elevated Alanine Aminotransferase ALT) : Monitor ALT levels with follow-up laboratory tests, ordered to identify trends and evaluate liver health. - Prediabetes: Discussed the potential b enefit of consulting a special loan officer for a comprehensive dietary review. A referral for nutritional counseling has been placed. Continue routine monitoring of hemoglobin A1c. - Fatty Liver Disease: Patient is advise d to follow up with gastroenterology for further evaluation of liver stiffness and fatty liver disease. . Patient was informed and verbally consented to the use of an ambient scribe for clinic note documentation during this visit. Discussion Notes I discussed with the patient the current state of his laboratory results, particularly regarding slight improvements in ALT levels and the increase in hemoglobin A1c. I explained the importance of monitoring blood glucose levels and the implications of prediabetes, emphasizing that reaching an A1c of 6.5% would indicate diabetes. The benefits of seeing a special loan officer for personalized dietary advice were highlighted, especially given his concerns about current eating habits aligning with recommended guidelines. I reinforced the need for follow-up care with gastroenterology concerning his fatty liver disease and elaborated on the significance of understanding the severity of any liver changes, including fibrosis, as visualized through elastography. I placed a referral for dietary counseling and encouraged the patient to explore potential services covered by his insurance network. The patient was informed of the necessity for routine follow-up appointments, including laboratory testing, to manage his conditions effectively. Patient Instructionsa. - Schedule and attend a consultation wit h a special loan officer for nutritional counseling. - Follow up with gastroenterology as dir ected for further liver evaluation. - Undergo scheduled laboratory tests, in cluding ALT and A1c, as advised before your next follow-up, [address] Tavarez - Maintain healthy lifestyle practices, focusing on dietary management and edwardo toring of blood glucose levels. - Reach out via the patient portal if th ere are any concerns or new symptoms arise prior to your next appointment. Total time spent caring for the patient today was 22minutes. This includes time spent before the visit reviewing the chart, time spent during the visit, and time spent after the visit on documentation [facility] Medical History High blood cholesterol Sleep apnea Surgical History [place] teeth extracted Family History Mother High cholesterol Father High blood pressure Arthritis Brother High blood pressure Social History Housing: Apartment Patient Tobacco Use Status: Never used Tobacco e-Cigarette/Vaping Use: Never Used service: No Current occupational status: employed Current occupation: pest control Cognitive needs: No Hearing needs: No Vision needs: Yes (Patient wears precription glasses.) Questionnaire Thrive Questionnaire Date Thrive assessed: 08/22/23 AUDIT C Alcohol Use Questionnaire (AUDIT-C) 2. How many drinks containing alcohol do you have on a typical day when you are drinking?: 1 or 2 3. How often do you have six or more drinks on one occasion?: Less than monthly Total Score: 1 ISHAAN-7 AMB Questionnaire ISHAAN-7 Date ISHAAN - 7 assessed: 08/22/23 Source: Developed by Drs. Ming Draper, Marycarmen Foley, Flakito Bowen and colleagues, with an educational faraz from [employer]. Physical exam (Primary Care) Tobacco/Smoking Status: Tobacco use Status Tobacco use date assessed 10/28/23 03/27/24 15:15 Patient Tobacco Use Status Never used Tobacco 03/27/24 15:15 e-Cigarette/Vaping Use Never Used 03/27/24 15:15 Thrive Assessment: Date of Thrive Assessment Date Thrive assessed 08/22/23 03/27/24 15:15 Telehealth Telehealth Telehealth Platform: Telephone Location of provider rendering services: practice address Location of patient: address on file Patient Identification confirmed using: Name, : Yes Telehealth method: voice only Patient verbally consented to treatment: Yes Patient verbally consented to billing insurance company: Yes Patient informed of any privacy concerns related to visit: Yes Minutes spent on Phone/Video with Pt.: 16 Results Reviewed Results Reviewed: RUN: 03/27/24 3445 PAGE 1 [facility] [address] [place] [id number] Hooker Off: Hermilo Davis M.D. Specimen Inquiry Name: Hermilo Frias Age/Sex: 44/M : 1980 Unit#: [id number] Attend Dr: Sarika De La Cruz IC DESIGNER CUSTOM-BC Re03/24/24 Status: DEP [facility]F [facility] Disch: SPEC : [id number] AALIYAH: 03/24/24 STATUS: COMP REQ : [id number] RECD: 03/24/24-[address]: Sarika De La Cruz [facility]- COMP: 03/24/24 ENTERED: 03/24/[address] [facility] [address]: ORDERED: CMP, Liver Panel, April, Lip Test Result Flag Reference Sodium 139 135-145 mmol/L Potassium 4.4 3.3-5.1 mmol/L CL 104 96-108 mmol/L CO2 25 22-29 mmol/L Gap 14 12-20 BUN 18 H 9-16 mg/dL Creat 0.98 0.5-1.4 mg/dL eGFR > 60 Chronic Kidney Disease: Estimated GFR < 60 mL/min/1.73m2 Severe Kidney Disease: Estimated GFR < 15 mL/min/1.73m2 Glucose, Random 124 H 60-115 mg/dL CA 10.2 8.4-10.2 mg/dL Total Bili 0.7 0.0-1.0 mg/dL Direct Bili 0.2 0.0-0.5 mg/dL AST (GOT) 35 5-37 U/L ALT (GPT) 70 H 0-40 U/L Protein, Total 7.4 6.5-8.0 g/dL Alb 4.8 3.5-5.0 g/dL Alk Phos 98 39-117 U/L April 39 28-100 U/L Lipase 19 8-78 U/L [employer], EIA, STOOLMicro Number: [id number] Status: FinalSpecimen Source: StoolSpecimen Quality: AdequateH.pylori Ag: Not Detected Coding Level of Care Code Tele Est Pt Level 3 (61939) Complex EM visit Add On G2211 Diagnoses Elevated ALT measurement R74.01 Gas bloat syndrome K92.89 Hepatic steatosis K76.0 Pre-diabetes R73.03 Assessment & Plan Assessment & Plan (1) Elevated ALT measurement: Code(s): R74.01 - Elevation of levels of liver transaminase levels Category: Medical (2) Gas bloat syndrome: Code(s): K92.89 - Other specified diseases of the digestive system Category: Medical (3) Hepatic steatosis: Code(s): K76.0 - Fatty (change of) liver, not elsewhere classified Category: Medical (4) Pre-diabetes: Code(s): R73.03 - Prediabetes Category: Medical Plan . Orders: Referrals [employer] Nutrition Referral E78.5 - Hyperlipidemia, unspecified, K76.0 - Fatty (change of) liver, not elsewhere classified, R73.03 - Prediabetes
== END ==
LOC: HO.HMCFM 15:21
PROVIDERS: PCP Family Medicine; Visit Provider Nurse Practitioner Family
DX: R74.01 Elevation of levels of liver transaminase levels (principal); K92.89 Other specified diseases of the digestive system; K76.0 Fatty (change of) liver, not elsewhere classified; R73.03 Prediabetes

== ENCOUNTER 2024-04-13 12:55 | Outpatient (AMB) | payer OTHER, SELFPAY ==
[2024-04-13 13:09] VITALS: BMI 29.0
--- NOTE | 2024-04-13 13:09 | A.OFFVIS_ITS ---
VS Expanded 04/13/24 13:09 04/13/24 13:22 Height 5 ft 8 in 5 ft 8 in Weight 190 lb 7.67 oz 190 lb BMI 29.0 28.9 Intake Visit Reasons: Prediabetes/CONF Allergies No Known Allergies Allergy (Verified 03/27/24 16:50) Nutrition Presentation Details: Pt presents for MNT for Pre DM food frequency fruits: 0-1/ vex/wk dairy > 4 serving starches > 20 servings protein foods : 8-10 oz/d Reading food labels - yes physical activity daily life activities eoth 3-4 /wk BS Monitoring Most Recent Diabetes Results: Cholesterol 144 mg/dL (<200) 10/28/23 HDL Cholesterol 32 mg/dL (>40) L 10/28/23 Triglycerides 174 mg/dL (<150) H 10/28/23 Creatinine 0.98 mg/dL (0.5-1.4) 03/24/24 Blood Urea Nitrogen 18 mg/dL (9-16) H 03/24/24 Sodium 139 mmol/L (135-145) 03/24/24 Potassium 4.4 mmol/L (3.3-5.1) 03/24/24 Chloride 104 mmol/L (96-108) 03/24/24 Carbon Dioxide 25 mmol/L (22-29) 03/24/24 Calcium 10.2 mg/dL (8.4-10.2) 03/24/24 AST 35 U/L (5-37) 03/24/24 ALT 70 U/L (0-40) H 03/24/24 Total Protein 7.4 g/dL (6.5-8.0) 03/24/24 Albumin 4.8 g/dL (3.5-5.0) 03/24/24 FBN-Esggijg-Aj.Jeor Equation Height: 5 ft 8 in Weight: 190 lb Resting Metabolic Rate: 1733.90 Calculated Activity Level: Mild Activity Calories Needed to Maintain Weight: 2384.11 Diagnosis Nutrition problem #1: food nutri know defi As related to (etiology) #1: diagnosis As evidenced by (sign/symptom) #1: knowledge deficit of diet PFSH Medical History High blood cholesterol Sleep apnea Surgical History [place] teeth extracted Family History Mother High cholesterol Father High blood pressure Arthritis Brother High blood pressure Social History Housing: Apartment Patient Tobacco Use Status: Never used Tobacco e-Cigarette/Vaping Use: Never Used service: No Current occupational status: employed Current occupation: pest control Cognitive needs: No Hearing needs: No Vision needs: Yes (Patient wears precription glasses.) Assessment & Plan Assessment & Plan (1) Pre-diabetes: Code(s): R73.03 - Prediabetes Category: Medical Plan: Wt: 86 Kg ( 04/28 ) Est kcal needs as per MSJ: 2400 (40% carb, 30% protein/fat) Est fluid needs as per 25-30 ml/d: 2600 Est prot per day as per 1 g/kg bw: 86 Recommend fiber intake : 8-10 g per day and gradually increase to 25-28 g per day for women and 35-38 g for men or as tolerated Recommend sodium intake per day : less than 2300 mg Educated patient on: ( R = reviewed V = verbalizes understanding N/R = needs review N/A = not applicable * Food sources of carbohydrate, adequate serving sizes and its role in various health conditions: R * Differences between complex carbohydrates a simple carbohydrates, role of fiber in diet: R * Lean protein sources of foods: R V NR * Differences between types of fats and role in diet (mono on saturated fat fatty acids, saturated fatty acids, trans fats): R * Food sources of sodium in salt and healthy modifications for heart health in kidney health: R V R/V * Vitamins and minerals: R V N/R * Healthy plate method concept: R V N/R * Physical activity: Benefits a precaution: R V N/R * Hypoglycemia protocol (rule of 15): R V N/R * Dietary prevention of Hyperglycemia: R Patient Instructions: Work n reducing total carb at meal to less htan 80 g following healthy plate method Choose low sugar beverages, and reduce on sugary foods (pastries and similar) Coding Level of Care Code Nutr Indiv Intake (22521) Diagnoses Pre-diabetes R73.03 Time Spent (min) 30
--- OUTSIDE RECORDS SUMMARY | 2024-04-15 15:32 | XMS_ITS ---
Author Name [facility] Organization Unknown Results Test Name/Text Value Interpretation Date Range Source eGFR 60mL/min Normal [id number] - [facility] eGFR Afri-Amer 60mL/min Normal [id number] - [facility] Bili Total 0.8mg/dL Normal [id number] 0.1 - 1.3 [facility] Sodium Level 139mmol/L Normal [id number] 136 - 146 [facility] Chloride 104mmol/L Normal [id number] 98 - 108 [facility] Calcium Level 10.5mg/dL Normal [id number] 8.2 - 10.5 [facility] Glucose Level 101mg/dL Above high normal [id number] 74 - 100 [facility] Total Protein 8.3g/dL Normal [id number] 6 - 8.3 [facility] Alk Phos 99IntUnit/L Normal [id number] 43 - 122 [facility] Creatinine 0.89mg/dL Normal [id number] 0.7 - 1.3 [facility] ALT 98IntUnit/L Above high normal [id number] - [facility] CO2 22mmol/L Normal [id number] 22 - 31 [facility] Albumin Level 5.2g/dL Above high normal [id number] 3.2 - 5.1 [facility] Globulin Calc 3.1g/dL Normal [id number] 2.2 - 3.5 [facility] Potassium Level 3.8mmol/L Normal [id number] 3.5 - 5.1 [facility] BUN/Creat Ratio 14.6 Normal [id number] 10 - 20 [facility] Anion Gap 13mmol/L Normal [id number] 6 - 14 [facility] AST 39IntUnit/L Normal [id number] 14 - 50 [facility] BUN 13mg/dL Normal [id number] 7 - 21 [facility] Gran % 66.7% Normal [id number] 40 - 74 [facility] MCHC 34.1g/dL Normal 32 - 36 [facility] HCT 45.2% Normal 42 - 52 [facility] MPV 7.6fL Normal 6 - 9.5 [facility] WBC 8thous/mm3 Normal 4 - 10.5 [facility] H RDW 13.2% Normal 11.5 - 14 [facility] Baso # 0.1thous/mm3 Normal 0 - 0.1 [facility] Lymph # 2thous/mm3 Normal 1.5 - 3.5 [facility] H RBC 5.25mill/mm3 Normal 4.7 - 6 [facility] MCH 29.4pg Normal 27 - 31 [facility] [place] % 7.4% Normal 0 - 12 [facility] MCV 86.2fL Normal 78 - 100 [facility] Platelet 284thous/mm3 Normal 150 - 450 [facility] Gran # 5.4thous/mm3 Normal 1.5 - 6.6 [facility] Eos % 0.7% Normal 0 - 6 [facility] Eos # 0.1thous/mm3 Normal 0 - 0.6 [facility] Lymph % 24.5% Normal 17 - 48 [facility] Baso % 0.7% Normal 0 - 1 [facility] [place] # 0.6thous/mm3 Normal 0 - 0.9 [facility] HGB 15.4g/dL Normal 13.5 - 18 [facility] Carboxyhemoglobin 2% Above high normal 0 - 1.5 [facility]
[2024-04-16 14:08] VITALS: BMI 28.9
== END 2024-04-13 13:56 | disposition home or self-care (01) ==
PROVIDERS: PCP Family Medicine; Visit Provider Dietitian, Registered
DX: R73.03 Prediabetes (principal)

== ENCOUNTER → 2024-04-13 12:55 | Outpatient (BNVA) | payer OTHER, SELFPAY | PROVIDERS: PCP Family Medicine; Visit Provider Dietitian, Registered | DX: R73.03 Prediabetes (principal); Z71.3 Dietary counseling and surveillance | CPT/HCPCS: 97802 ==

== ENCOUNTER 2024-05-25 09:14 | Outpatient (AMB) | payer OTHER, SELFPAY ==
[2024-05-25 09:15] VITALS: BMI 29.0
--- NOTE | 2024-05-25 09:15 | A.OFFVIS_ITS ---
VS Expanded 05/25/24 09:15 05/26/24 13:37 Height 5 ft 8 in 5 ft 8 in Weight 190 lb 7.67 oz 190 lb BMI 29.0 28.9 Intake Visit Reasons: Pre DM Allergies No Known Allergies Allergy (Verified 03/27/24 16:50) Nutrition Presentation Details: Pt presents for MNT f/u for Pre DM (a1c 6.3%) fatty liver, hyperlipidemia Pt reports working on diet modifications BS Monitoring Most Recent Diabetes Results: Creatinine 0.98 mg/dL (0.5-1.4) 03/24/24 Blood Urea Nitrogen 18 mg/dL (9-16) H 03/24/24 Sodium 139 mmol/L (135-145) 03/24/24 Potassium 4.4 mmol/L (3.3-5.1) 03/24/24 Chloride 104 mmol/L (96-108) 03/24/24 Carbon Dioxide 25 mmol/L (22-29) 03/24/24 Calcium 10.2 mg/dL (8.4-10.2) 03/24/24 AST 35 U/L (5-37) 03/24/24 ALT 70 U/L (0-40) H 03/24/24 Total Protein 7.4 g/dL (6.5-8.0) 03/24/24 Albumin 4.8 g/dL (3.5-5.0) 03/24/24 PTC-Ftwkmeu-Wf.Jeor Equation Height: 5 ft 8 in Weight: 190 lb Resting Metabolic Rate: 1733.90 Calculated Activity Level: Sedentary Calories Needed to Maintain Weight: 2080.68 Diagnosis Nutrition problem #1: food nutri know defi As related to (etiology) #1: diagnosis As evidenced by (sign/symptom) #1: knowledge deficit of diet Monitoring/Goals Nutrition problem monitoring: level of knowledge/skill and total CHO intake Nutrition goal/outcome: list 3 high fiber foods Outcome progress: verbalized understanding [facility] Medical History High blood cholesterol Sleep apnea Surgical History [place] teeth extracted Family History Mother High cholesterol Father High blood pressure Arthritis Brother High blood pressure Social History Housing: Apartment Patient Tobacco Use Status: Never used Tobacco e-Cigarette/Vaping Use: Never Used service: No Current occupational status: employed Current occupation: pest control Cognitive needs: No Hearing needs: No Vision needs: Yes (Patient wears precription glasses.) Assessment & Plan Assessment & Plan (1) Pre-diabetes: Code(s): R73.03 - Prediabetes Category: Medical Plan: Wt: 86 Kg ( 04/28 ), 05/2024 Est kcal needs as per MSJ: 2400 (40% carb, 30% protein/fat) Est fluid needs as per 25-30 ml/d: 2600 Est prot per day as per 1 g/kg bw: 86 Recommend fiber intake : 8-10 g per day and gradually increase to 25-28 g per day for women and 35-38 g for men or as tolerated Recommend sodium intake per day : less than 2300 mg Educated patient on: ( R = reviewed V = verbalizes understanding N/R = needs review N/A = not applicable * Food sources of carbohydrate, adequate serving sizes and its role in various health conditions: R * Differences between complex carbohydrates a simple carbohydrates, role of fiber in diet: R * Lean protein sources of foods: R * Differences between types of fats and role in diet (mono on saturated fat fatty acids, saturated fatty acids, trans fats): R * Food sources of sodium in salt and healthy modifications for heart health in kidney health: R V R/V * Vitamins and minerals: R V N/R * Healthy plate method concept: R V N/R * Physical activity: Benefits a precaution: R * Hypoglycemia protocol (rule of 15): R V N/R * Dietary prevention of Hyperglycemia: R Patient Instructions: continue working onr educing portion of total carbohydrates to less than 80 g at meal, choosing whole grains Have sand on whole grain breads/veg and lean protein for lunch carry with snacks (nuts, fresh/canned or dried fruits maintain physicaly active goal 150 min per week abstain from alcohol Coding Level of Care Code Nutr Indiv Subseq (24039) Diagnoses Pre-diabetes R73.03 Time Spent (min) 30
[2024-05-26 13:37] VITALS: BMI 28.9
== END 2024-05-25 09:44 | disposition home or self-care (01) ==
PROVIDERS: PCP Family Medicine; Visit Provider Dietitian, Registered
DX: R73.03 Prediabetes (principal)

== ENCOUNTER → 2024-05-25 09:14 | Outpatient (BNVA) | payer OTHER, SELFPAY | PROVIDERS: PCP Family Medicine; Visit Provider Dietitian, Registered | DX: R73.03 Prediabetes (principal); Z71.3 Dietary counseling and surveillance | CPT/HCPCS: 97803 ==

== ENCOUNTER 2024-06-04 20:01 | Emergency (ER) | payer OTHER, SELFPAY ==
--- NOTE | ~2024-06-04 | XR_ITS ---
CLINICAL HISTORY: pain 2 view chest x-ray Comparison: None Findings: The lungs are clear. Heart size is normal. No acute fracture. IMPRESSION: 1. No acute findings. This document has been electronically signed by: Victorino Mccullough MD on 06/04/2024 21:21:44
--- NOTE | 2024-06-04 20:03 | ECG_ITS ---
Test Reason : CHEST PAIN Blood Pressure : */* mmHG Vent. Rate : 96 BPM Atrial Rate : 96 BPM P-R Int : 162 ms QRS Dur : 88 ms QT Int : 328 ms P-R-T Axes : 13 49 12 degrees QTcB Int : 414 ms Normal sinus rhythm Normal ECG No previous ECGs available Referred By: Generic ED Physician Electronically Signed By: JOSIAH MUNGUIA
[2024-06-04 20:18] VITALS: BP 163/112; PULSE 97; RESP 20; TEMP 36.5; O2SAT 97; BMI 28.9
--- NOTE | 2024-06-04 20:19 | ED_ITS ---
HPI - General Adult General Chief complaint: Chest Pain Stated complaint: Chest Pains Time Seen by Provider: 06/04/24 23:49 Source: patient Limitations: no limitations History of Present Illness ED Provider: Anaya Townsend PA-C HPI narrative: 44-year-old male with a history of hyperlipidemia, fatty liver disease, prediabetes presents with chest pain. Patient states he was driving when he felt a ?pop?, in the right upper chest. Pain was brief transient, no longer present. Denies history of COPD or tobacco use, no shortness of breath. Denies overuse injury of the right upper extremity, new trauma, new heavy lifting. Denies neck pain, radiation of pain into the right upper extremity or paresthesia. Related Data Previous Rx's ?Medication ?Instructions ?Recorded meloxicam 15 mg tablet 15 mg PO DAILY 30 days #30 tabs 09/27/23 atorvastatin 40 mg tablet 40 mg PO DAILY 90 days #90 tabs 06/01/24 Allergies Allergy/AdvReac Type Severity Reaction Status Date / Time No Known Allergies Allergy Verified 06/04/24 20:20 Review of Systems 2 Review of Systems: Yes all other systems are reviewed and are negative Constitutional: Constitutional: Denies fatigue and Denies fever(s) ENT: Denies neck pain Cardiovascular: Cardiovascular: Reports chest pain and Denies dyspnea Respiratory: Respiratory: Denies cough and Denies dyspnea Gastrointestinal: Gastrointestinal: Denies abdominal pain Musculoskeletal: Musculoskeletal: Denies back pain, Denies arthralgias, Denies joint swelling, Denies neck pain, Denies numbness and Denies tingling Neurologic: Denies numbness and Denies tingling Endocrine: Endocrine: Denies fatigue PMFSH Past Medical History Attestation statement: The following information was validated with the patient. Medical History High blood cholesterol Sleep apnea Surgical History [place] teeth extracted Family History Family History Mother High cholesterol Father High blood pressure Arthritis Brother High blood pressure Social History Social History Housing: Apartment Patient Tobacco Use Status: Never used Tobacco Smoked in Last 30 Days: No e-Cigarette/Vaping Use: Never Used Use of substances other than those prescribed or required for medical reasons: No Advance Directives: No Advance Directives Information Provided: Yes service: No Current occupational status: employed Current occupation: pest control Cognitive needs: No Hearing needs: No Vision needs: Yes (Patient wears precription glasses.) Physical Exam ED Vital Signs: Vital Signs - 24 hr 06/04/24 20:18 06/04/24 23:44 Temperature 97.7 F 98.8 F Pulse Rate 97 92 Respiratory Rate 20 18 Blood Pressure 163/112 H 157/107 H Pulse Oximetry 97 93 Oxygen Delivery Method Room Air Room Air BMI result Body Mass Index 28.9 Const Other: Alert well-appearing Orientation/consciousness: patient oriented x3 Chest Other: No pain elicited with palpation of upper right chest wall Resp Effort & Inspection: normal respiratory effort Cardio Other: Normal peripheral perfusion Skin Other: Warm dry no rash Neuro General: patient oriented x3, gait normal, no focal motor deficits and CN's II- XI intact bilaterally Psych Other: Cooperative Course Course Course Narrative: RME, this is a rapid medical exam performed by Taiwo Melton please refer to primary provider for complete H&P- 44-year-old male with past medical history significant for hypertension, prediabetes, hyperlipidemia presents for evaluation of right-sided chest pain. Patient reports ?I felt a pop while that was driving about 2 hours ago. ? Plan for cardiac workup Medical Decision Making Medical Decision Making MDM Narrative: 44-year-old male with a history of hyperlipidemia, fatty liver disease, prediabetes presents with chest pain. Patient states he was driving when he felt a ?pop?, in the right upper chest. Pain was brief transient, no longer present. Denies history of COPD or tobacco use, no shortness of breath. Denies overuse injury of the right upper extremity, new trauma, new heavy lifting. Denies neck pain, radiation of pain into the right upper extremity or paresthesia. Problem: Hyperlipidemia , prediabetes History: Per patient I have considered the following differential diagnoses: Atypical presentation for ACS, musculoskeletal strain, pneumothorax, rib fracture, Plan: ACS was considered, the patient does have some risk factors for coronary artery disease, however this is a highly atypical presentation. Screening labs including cardiac enzymes EKG and chest x-ray were obtained. There was no trauma involved, the patient was driving, when he developed this discomfort. Rib fracture least likely. Thought about spontaneous pneumothorax, however the patient does not have a history of COPD, he is not a smoker, he has no shortness of breath he is not hypoxic, in his pain was transient. We do not have a good explanation as to what the patient experienced, he is comfortable following up with his primary care. I have independently reviewed the following tests: Labs: No leukocytosis, not anemic, no electrolyte abnormality, troponin negative EKG: Normal sinus rhythm, rate of 96, no ischemic changes no ectopy QTC 414 Chest x-ray:Findings: The lungs are clear. Heart size is normal. No acute fracture. IMPRESSION: 1. No acute findings. This document has been electronically signed by: Victorino Mccullough MD on 06/04/2024 21:21:44 Lab Data 06/04/24 20:25 06/04/24 20:25 Labs: Lab Results 06/04/24 Range/Units 20:25 WBC 6.3 (4.8-10.8) X10*3/uL RBC 5.16 (4.60-5.80) X10*6/uL Hgb 15.2 (14.0-18.0) g/dl Hct 43.0 (42.0-52.0) % MCV 83.3 (80.0-98.0) fL MCH 29.5 (27.0-33.0) pg MCHC 35.3 (31.0-36.0) g/dl RDW 12.2 (11.0-16.0) % Plt Count 237 (160-400) X10*3/uL MPV 9.5 (9.4-12.4) fL Immature Gran % (Auto) 0.3 (0.0-0.4) % Neut % (Auto) 65.3 (45-73) % Lymph % (Auto) 24.2 (20-40) % [place]iscoe % (Auto) 8.9 (2-11) % Eos % (Auto) 1.0 (0-4) % Baso % (Auto) 0.3 (0-2) % Lymph # (Auto) 1.5 (1.2-4.9) X10*3/uL [place]iscoe # (Auto) 0.6 (0.1-1.2) X10*3/uL Eos # (Auto) 0.1 (0.0-0.4) X10*3/uL Baso # (Auto) 0.0 (0.0-0.2) X10*3/uL Abs Immat Gran (auto) 0.02 (0.00-0.03) X10*3/uL Absolute Neuts (auto) 4.1 (2.0-8.3) x10*3/uL Absolute Nucleated RBC 0.000 (0.0-0.012) X10*3/uL Nucleated RBC % (auto) 0.0 (0.0-0.2) /100WBC PT 11.6 (10.9-12.4) SEC INR 1.0 (0.9-1.1) Sodium 141 (135-145) mmol/L Potassium 4.3 (3.3-5.1) mmol/L Chloride 107 (96-108) mmol/L Carbon Dioxide 23 (22-29) mmol/L Anion Gap 15 (12-20) BUN 17 H (9-16) mg/dL Creatinine 1.12 (0.5-1.4) mg/dL Estim Creat Clear Calc 90.8 Estimated GFR > 60 Random Glucose 125 H (60-115) mg/dL Calcium 10.5 H (8.4-10.2) mg/dL Total Bilirubin 0.5 (0.0-1.0) mg/dL AST 45 H (5-37) U/L ALT 112 H (0-40) U/L Alkaline Phosphatase 115 (39-117) U/L Troponin I High Sens < 2.7 (<3.5-35.0) ng/L Total Protein 7.7 (6.5-8.0) g/dL Albumin 4.8 (3.5-5.0) g/dL Lipase 28 (8-78) U/L Discharge Plan Discharge Clinical Impression: Chest pain Patient Disposition: Home, Self-Care Instructions: Noncardiac Chest Pain (ED) Additional Instructions: All of your screening labs including a cardiac enzymes were normal. There were no concerning changes on your EKG, the chest x-ray is clear without any bone abnormality. We do not have a good explanation for the discomfort you experienced. Continue to follow up with your primary care provider. Prescriptions: No Action atorvastatin 40 mg tablet 40 mg PO DAILY 90 Days Qty: 90 3RF meloxicam 15 mg tablet 15 mg PO DAILY 30 Days Qty: 30 2RF Stand Alone Forms: Work/School Release Interventions: ED Discharge Assessment Last Done: 06/05/24 01:06 Discharge Date/Time: 06/05/24 01:06 Print Language: Belarusian
[2024-06-04 20:37] LABS: MANUAL DIFF FLAG NO
[2024-06-04 20:39] LABS: Basophils Percent Auto 0.3 % (0-2); Eosinophils Absolute Auto 0.1 X10*3/uL (0.0-0.4); Hemoglobin 15.2 g/dl (14.0-18.0); Imm Gran Abs Auto 0.02 X10*3/uL (0.00-0.03); Imm Gran Pct Auto 0.3 % (0.0-0.4); Lymphocytes Absolute Auto 1.5 X10*3/uL (1.2-4.9); Lymphocytes Percent Auto 24.2 % (20-40); Mean Corpuscular HGB Conc 35.3 g/dl (31.0-36.0); Mean Corpuscular Hemoglobin 29.5 pg (27.0-33.0); Mean Corpuscular Volume 83.3 fL (80.0-98.0); Mean Platelet Volume 9.5 fL (9.4-12.4); Monocytes Absolute Auto 0.6 X10*3/uL (0.1-1.2); Monocytes Percent Auto 8.9 % (2-11); Neutrophils Absolute Auto 4.1 x10*3/uL (2.0-8.3); Neutrophils Percent Auto 65.3 % (45-73); Platelet Count 237 X10*3/uL (160-400); Red Blood Count 5.16 X10*6/uL (4.60-5.80); Red Cell Distribution Width 12.2 % (11.0-16.0); White Blood Count 6.3 X10*3/uL (4.8-10.8)
[2024-06-04 20:45] LABS: Prothrombin Time 11.6 SEC (10.9-12.4)
[2024-06-04 20:55] LABS: Alanine Aminotransferase 112 U/L (0-40); Albumin Level 4.8 g/dL (3.5-5.0); Alkaline Phosphatase 115 U/L (39-117); Anion Gap 15 (12-20); Aspartate Amino Transferase 45 U/L (5-37); Bilirubin Total 0.5 mg/dL (0.0-1.0); Blood Urea Nitrogen 17 mg/dL (9-16); Calcium 10.5 mg/dL (8.4-10.2); Carbon Dioxide 23 mmol/L (22-29); Chloride 107 mmol/L (96-108); Creatinine Clr Calc Pharmacy 90.8; Estimated Glomerular Filt Rate > 60; Glucose Random 125 mg/dL (60-115); Lipase 28 U/L (8-78); Potassium 4.3 mmol/L (3.3-5.1); Sodium 141 mmol/L (135-145); Total Protein 7.7 g/dL (6.5-8.0)
[2024-06-04 21:05] LABS: Troponin-I High Sensitivity < 2.7 ng/L (<3.5-35.0)
[2024-06-04 23:44] VITALS: BP 157/107; PULSE 92; RESP 18; TEMP 37.1; O2SAT 93
--- NOTE | 2024-06-05 01:05 | PC.NURSE ---
Reviewed discharge instructions with pt. pt verbalized understanding, no sign of distress, no chest pain, ambulated with a steady gait upon discharge.
[2024-06-05 01:06] VITALS: BP 157/107; PULSE 92; RESP 18; TEMP 37.1; O2SAT 93
== END 2024-06-05 01:06 | disposition home or self-care (01) ==
PROVIDERS: Physician Assistant; Emergency Provider Emergency Medicine; PCP Family Medicine
DX: R07.9 Chest pain, unspecified (principal); J44.9 Chronic obstructive pulmonary disease, unspecified; E11.9 Type 2 diabetes mellitus without complications; I10 Essential (primary) hypertension; E78.5 Hyperlipidemia, unspecified; Z79.899 Other long term (current) drug therapy; Z79.02 Long term (current) use of antithrombotics/antiplatelets
CPT/HCPCS: 36415; 71046; 80053; 83690; 84484; 85025; 85610; 93005; 99283; 99285

== ENCOUNTER → 2024-06-04 20:03 | Outpatient (BNV) | payer OTHER, SELFPAY | PROVIDERS: Emergency Provider Emergency Medicine; PCP Family Medicine; Visit Provider Internal Medicine | DX: R07.9 Chest pain, unspecified (principal) | CPT/HCPCS: 93010 ==

== ENCOUNTER → 2024-06-04 20:19 | Outpatient (BNV) | payer OTHER, SELFPAY | PROVIDERS: PCP Family Medicine; Visit Provider Specialist | DX: R07.9 Chest pain, unspecified (principal) | CPT/HCPCS: 71046 ==

== ENCOUNTER 2024-07-20 11:36 | Outpatient (AMB) | payer BC, SELFPAY ==
--- NOTE | 2024-07-20 11:40 | MHC.OFFVIS ---
Vital Signs 07/20/24 11:43 Height 5 ft 8 in Weight 189 lb 9.561 oz BMI 28.8 BP 143/88 H Blood Pressure Location Lt brachial Position Sitting Pulse 80 Intake Visit Reasons: Fatty Liver Intake Note: Hermilo presents in the office as a new patient for fatty liver. CC: He states that he had issues in the past with his liver but nothing to be concerning. He states that everything with bowels is regular - bowels have been soft served and having a lot of gas pains in the chest area. Lots of belching - been seeing a label cutter. He notices pains in the epigastric region but nothing that concerns him. Allergies No Known Allergies Allergy (Verified 07/20/24 11:43) HPI Comments Details: 44 y.o M with PMH prediabetes and HLD who is here for elevated LFTs. Pt reports being told about abnormal LFTs almost 10 years ago. This was attributed to statin use initially. Pt drinks 1-2 drinks of hard liquor daily. No smoking. No drug use. Hep serologies negative 2023. No fam hx of liver dz. On statin for HLD. Has prediabetes but not on meds yet. 12/23/23: Elastography 1. Hepatic steatosis. 2. Elastography: Liver elastography measurements are consistent with a moderate risk for clinically significant liver fibrosis (METAVIR Stage F2-F3). [facility] Medical History High blood cholesterol Sleep apnea Surgical History [place] teeth extracted Family History Mother High cholesterol Father High blood pressure Arthritis Brother High blood pressure Social History Housing: Apartment Patient Tobacco Use Status: Never used Tobacco e-Cigarette/Vaping Use: Never Used service: No Current occupational status: employed Current occupation: pest control Cognitive needs: No Hearing needs: No Vision needs: Yes (Patient wears precription glasses.) Review of Systems Const All systems reviewed & are unremarkable except as noted in HPI and below Physical Exam Vital Signs: Last Vital Signs Pulse 80 07/20/24 11:43 BP 143/88 H 07/20/24 11:43 BMI result Body Mass Index 28.8 No apparent distress Nonicteric Abdomen soft, nondistended, 4 finger diastasis recti Alert and oriented x3, normal gait Assessment & Plan Assessment & Plan (1) Hepatic steatosis: Code(s): K76.0 - Fatty (change of) liver, not elsewhere classified Category: Medical (2) Pre-diabetes: Code(s): R73.03 - Prediabetes Category: Medical (3) Hyperlipidemia: Code(s): E78.5 - Hyperlipidemia, unspecified Category: Medical (4) Elevated LFTs: Code(s): R79.89 - Other specified abnormal findings of blood chemistry Category: Medical (5) Alcohol use: Code(s): F10.90 - Alcohol use, unspecified, uncomplicated Category: Social Hx Plan Pt with elevated LFTs and hepatic steatosis likely 2/2 metALD. reveiwed changes in risk factors including zero etOH use and modifying metabolic risk factors. In addition, will also complete work up for chronic liver disease. Fib 4 0.77 - i.e no advanced fibrosis. Plan: - Labs as below - Complete etOH abstinence - Mgmt for prediabetes and HLD as per PCP. GLP-1 preferred if med needed for tx. - 150 mins of mod intensity aerobic exercise per week - Follow up 6 months Orders: Orders BOBBY Reflex Titer and Pattern Today R74.01 - Elevation of levels of liver transaminase levels Ferritin Today R74.01 - Elevation of levels of liver transaminase levels Gamma Glutamyl Transpeptidase Today R74.01 - Elevation of levels of liver transaminase levels Liver Kidney Microsomal Ab Today R74.01 - Elevation of levels of liver transaminase levels Smooth Muscle Antibody Today R74.01 - Elevation of levels of liver transaminase levels Mitochondrial Antibody Today R74.01 - Elevation of levels of liver transaminase levels Transglutaminase IgA Today R74.01 - Elevation of levels of liver transaminase levels TSH reflex Free T4 Today R74.01 - Elevation of levels of liver transaminase levels Alpha 1 Anti-trypsin Today R74.01 - Elevation of levels of liver transaminase levels Ceruloplasmin Today R74.01 - Elevation of levels of liver transaminase levels IRON PROFILE Today R74.01 - Elevation of levels of liver transaminase levels Prothrombin Time INR Today R74.01 - Elevation of levels of liver transaminase levels Immunoglobulin A Today R74.01 - Elevation of levels of liver transaminase levels Coding Level of Care Code New Pt Level 4 (22905) Complex EM visit Add On G2211 Diagnoses Hepatic steatosis K76.0 Pre-diabetes R73.03 Hyperlipidemia E78.5 Elevated LFTs R79.89 Alcohol use F10.90
[2024-07-20 11:43] VITALS: BP 143/88; PULSE 80; BMI 28.8
--- OUTSIDE RECORDS SUMMARY | 2024-07-20 13:47 | XMS_ITS | Encounter Summary ---
Author Organization [facility] Address [address] [place] [address] Care Team Providers Care Party Bus Driver Name Role Phone Biju Troncoso DO Primary Care Provider Unavaila ble Encounter Details Date Type Department Care Team Description 09/30/2022 Night Triage Doc Medical Records [address] [place] [address] Abstract, Provider Social History Tobacco Use Types Packs/Day Years Used Date Smoking Tobacco: Never Smokeless Tobacco: Never Alcohol Use Standard Drinks/Week Comments Yes 0 (1 standard drink = 0.6 oz pur e alcohol) 3 drinks a week Sex Assigned at Date Recorded Not on file documented as of this encounter Plan of Treatment Not on file documented as of this encounter Visit Diagnoses Not on filedocumented in this encounter Care Teams Party Bus Driver Relationship Specialty Start Date End Date Biju Troncoso DO PCP - General Internal Medicine 04/18/21 documented as of this encounter
--- OUTSIDE RECORDS SUMMARY | 2024-07-20 13:47 | XMS_ITS | Encounter Summary ---
Author Organization [facility] Address [address] [place] [address] Care Team Providers Care Machine Feeder Raw Stock Name Role Phone Matilda Gonzalez MD Primary Care Provider Unavailable Biju Troncoso DO Primary Care Provider Unavaila ble Encounter Details Date Type Department Care Team Description 10/22/2016 Release of Information Medical Records [address] [place] [address] Abstract, Provider Social History Tobacco Use Types Packs/Day Years Used Date Smoking Tobacco: Never Alcohol Use Standard Drinks/Week Comments Yes 0 (1 standard drink = 0.6 oz pur e alcohol) 3 drinks a week Sex Assigned at Date Recorded Not on file documented as of this encounter Plan of Treatment Not on file documented as of this encounter Visit Diagnoses Not on filedocumented in this encounter Care Teams Machine Feeder Raw Stock Relationship Specialty Start Date End Date Matilda Gonzalez MD PCP - General Internal Medicine 07/09/16 Biju Troncoso DO PCP - General Internal Medicine 04/18/21 documented as of this encounter
--- OUTSIDE RECORDS SUMMARY | 2024-07-20 13:47 | XMS_ITS | Encounter Summary ---
Author Organization [facility] Address [address] [place] [address] Care Team Providers Care Radio Installer Name Role Phone Biju Troncoso DO Primary Care Provider Unavaila ble Reason for Visit * Reason Comments E-prescribe Rx Request Encounter Details Date Type Department Care Team Description 07/05/2022 Refill Adult Medicine - [address] [address] Biju Troncoso DO E-prescribe Rx Request Social History Tobacco Use Types Packs/Day Years Used Date Smoking Tobacco: Never Smokeless Tobacco: Never Alcohol Use Standard Drinks/Week Comments Yes 0 (1 standard drink = 0.6 oz pur e alcohol) 3 drinks a week Sex Assigned at Date Recorded Not on file documented as of this encounter Miscellaneous Notes * Telephone Encounter - Kathy Mott - 07/05/2022 12:40 PM EST Patient would like script to be: E-PRESCRIBED/FAXED TO PHARMACY WHEN WAS THE PATIENT'S LAST APPOINTMENT IN ADULT MEDICINE? 09/28/21 WHEN WAS THE LAST TIME THE PATIENT SAW THEIR PCP? Same as above Does patient have an upcoming appointment? Yes 07/31/22 (THE MEDICATION REQUESTED IS ON THE MED LIST ABOVE) All of the medications requested were on the CURRENT MEDS list Did you check the Pharmacy information above?: YES Patient wants: 90 -day supply Is this a mail order prescription request ? NO If the refill is from a FAXED refill request what is the RX # listed on the fax? N/A Patients current insurance carrier is: Payor: [facility] PLAN / Plan: [facility] $15/$22 / Product Type: HMO [id number] documented in this encounter Plan of Treatment Not on file documented as of this encounter Visit Diagnoses Not on filedocumented in this encounter Care Teams Radio Installer Relationship Specialty Start Date End Date Biju Troncoso DO PCP - General Internal Medicine 04/18/21 documented as of this encounter
== END 2024-07-20 12:07 | disposition home or self-care (01) ==
LOC: HO.HGI 11:36
PROVIDERS: PCP Family Medicine; Visit Provider Internal Medicine
DX: K76.0 Fatty (change of) liver, not elsewhere classified (principal); R73.03 Prediabetes; E78.5 Hyperlipidemia, unspecified; R79.89 Other specified abnormal findings of blood chemistry; F10.90 Alcohol use, unspecified, uncomplicated
CPT/HCPCS: 99204

== ENCOUNTER 2024-07-27 09:24 | Outpatient (REF) | payer BC, SELFPAY ==
[2024-07-27 12:03] LABS: Prothrombin Time 11.8 SEC (10.9-12.4)
[2024-07-27 12:15] LABS: Estimated Average Glucose 128 mg/dL; Hemoglobin A1c % 6.1 % (<6.0)
[2024-07-27 12:22] LABS: Alanine Aminotransferase 86 U/L (0-40); Albumin Level 4.8 g/dL (3.5-5.0); Alkaline Phosphatase 111 U/L (39-117); Anion Gap 11 (12-20); Aspartate Amino Transferase 37 U/L (5-37); Bilirubin Total 0.6 mg/dL (0.0-1.0); Blood Urea Nitrogen 13 mg/dL (9-16); Calcium 9.8 mg/dL (8.4-10.2); Carbon Dioxide 27 mmol/L (22-29); Chloride 106 mmol/L (96-108); Cholesterol 120 mg/dL (<200); Estimated Glomerular Filt Rate > 60; Glucose Fasting 116 mg/dL (60-99); HDL Cholesterol 30 mg/dL (>40); Iron 80 mcg/dL (45-160); LDL Cholesterol Calculated 68 mg/dL (<100); Percent Iron Saturation 25 % (15-50); Potassium 4.3 mmol/L (3.3-5.1); Sodium 140 mmol/L (135-145); Total Iron Binding Capacity 319 mcg/dL (228-428); Total Protein 7.5 g/dL (6.5-8.0); Triglycerides 113 mg/dL (<150); Unsaturated Iron Binding 239 ug/dL
[2024-07-27 12:41] LABS: Ferritin 215 ng/mL (20-250); Gamma Glutamyl Transpeptidase 109 U/L (11-51); TSH reflex Free T4 1.28 uIU/mL (0.32-4.0)
[2024-07-28 06:39] LABS: Alpha 1 Anti-trypsin 130 mg/dL (83-199); Ceruloplasmin 17 mg/dL (14-30)
[2024-07-28 13:59] LABS: Transglutaminase IgA <1.0 U/mL
[2024-07-29 09:04] LABS: Immunoglobulin A 89 mg/dL (47-310)
[2024-07-30 10:48] LABS: Mitochondrial Antibodies NEGATIVE (NEGATIVE)
[2024-07-30 12:13] LABS: Smooth Muscle Antibody <20 U (<20)
[2024-07-30 12:48] LABS: Liver Kidney Microsomal Ab <=20.0 U (<=20.0)
[2024-07-30 14:43] LABS: Anti Nuclear Antibody Pattern Nuclear, Nucleolar; Anti Nuclear Antibody Screen POSITIVE (NEGATIVE)
== END 2024-07-27 09:25 | disposition home or self-care (01) ==
LOC: HO.WFDLDS 09:24
PROVIDERS: Referring Provider Internal Medicine; Visit Provider Family Medicine
DX: Z00.00 Encounter for general adult medical examination without abnormal findings (principal); R74.01 Elevation of levels of liver transaminase levels; E78.5 Hyperlipidemia, unspecified; R73.01 Impaired fasting glucose; R73.03 Prediabetes; Z79.01 Long term (current) use of anticoagulants
CPT/HCPCS: 36415; 80053; 80061; 82103; 82390; 82728; 82784; 82977; 83036; 83540; 84443; 85610; 86015; 86038; 86039; 86364; 86376; 86381

== ENCOUNTER 2024-09-07 08:53 | Outpatient (AMB) | payer BC, SELFPAY ==
--- NOTE | 2024-09-07 09:05 | A.OFFPC_ITS ---
Vital Signs 09/07/24 09:09 Height 5 ft 8 in Weight 187 lb 2 oz BMI 28.4 BP 132/70 Blood Pressure Location Lt brachial Position Sitting Respiration 14 Pulse 76 Pulse Source Pulse Oximeter Temp 97.9 F Temp Source Oral Pulse Oximetry (%) 98 Oxygen Delivery Method Room Air Intake Visit Reasons: f/u gastro/dm Intake Note: Patient is scheduled for a DM follow-up as well as gastro follow-up Home Energy Consultant Required: No Allergies No Known Allergies Allergy (Verified 09/07/24 09:08) Medication List - Last Reconciled 09/07/24 by Hermilo Prieto MD atorvastatin 40 mg PO DAILY 90 days meloxicam 15 mg PO DAILY 30 days Tobacco use date assessed: 10/28/23 Dental Screening Dental Screen Date: 08/22/23 HPI f/u gastro/dm HPI Details 44 y/o male presents to f/u chronic cond itions. Last A1c 07/27/24 6.1%. Labs drawn 07/27/24. Elevated liver enzymes - ALT 86. Pt states he has stopped drinking EtOH. Triglycerides 113. TC 120. LDL 68. He is on artovastatin 40mg daily. He reports some anxiety. Declines therapy today. FORMERLY [facility], [facility] Medical History High blood cholesterol Sleep apnea Surgical History [place] teeth extracted Family History Mother High cholesterol Father High blood pressure Arthritis Brother High blood pressure Social History Housing: Apartment Patient Tobacco Use Status: Never used Tobacco e-Cigarette/Vaping Use: Never Used service: No Current occupational status: employed Current occupation: pest control Cognitive needs: No Hearing needs: No Vision needs: Yes (Patient wears precription glasses.) Questionnaire PHQ-9 Over the last 2 weeks, how often have you been bothered by any of the following problems? 1. Little interest or pleasure in doing things: not at all 2. Feeling down, depressed, or hopeless: several days 3. Trouble falling or staying asleep, or sleeping too much: not at all 4. Feeling tired or having little energy: several days 5. Poor appetite or overeating: several days 6. Feeling bad about yourself - or that you are a failure or have let yourself or your family down: not at all 7. Trouble concentrating on things, such as reading the newspaper or watching television: not at all 8. Moving or speaking so slowly that other people could have noticed. Or the opposite - being so fidgety or restless that you have been moving around a lot more than usual: not at all 9. Thoughts that you would be better off or of hurting yourself in some way: not at all Total score: 3 Depression Screening Interpretation: Negative Depression Screening Done: Yes 60858 - PHQ-9 Billing: Yes Source: Developed by Drs. Ming Draper, Marycarmen Foley, Flakito Bowen and colleagues, with an educational faraz from [employer]. Thrive Questionnaire Date Thrive assessed: 09/07/24 I am a: Patient What is your living situation today?: I have a steady place to live Within the past 12 months, did the food you bought not last and you didn't have the money to get more?: Never true Within the past 12 months, did you worry whether your food would run out before you got money to buy more?: Never true Do you have trouble paying for medicines?: No Do you have trouble getting transportation to medical appointments?: No Do you have trouble paying your heating and electricity bill?: No Do you have trouble taking care of your child, family member or friend?: No Do you have trouble with day-to-day activities such as bathing, preparing meals, shopping, managing finances, etc.?: No Are you currently unemployed and looking for a job?: No Are you interested in more education?: Yes Please select the resources that you would like help with: None Currently or been in a relationship where the following occur: No concerns reported THRIVE Score: 0 AUDIT C Alcohol Use Questionnaire (AUDIT-C) 1. How often do you have a drink containing alcohol?: Never Total Score: 0 ISHAAN-7 AMB Questionnaire ISHAAN-7 Date ISHAAN - 7 assessed: 09/07/24 Feeling nervous, anxious, or on edge: 1 = Several days Not being able to stop or control worryin = Several days Worrying too much about different things: 1 = Several days Trouble relaxin = Several days Being so restless that it is hard to sit still: 0 = Not at all Becoming easily annoyed or irritable: 0 = Not at all Feeling afraid as if something awful might happen: 1 = Several days Total ISHAAN-7 score (0-4 normal; 5-9 mild; 10-14 moderate; 15-21 severe): 5 Source: Developed by Drs. Ming Draper, Marycarmen Foley, Flakito Bowen and colleagues, with an educational faraz from [employer]. Review of Systems Const Denies chills, Denies fatigue, Denies fever(s), Denies headache(s) and Denies weakness ENT Denies dizziness and Denies headache(s) Card Denies dyspnea Resp Denies cough, Denies dyspnea, Denies wheezing and Denies other (shortness of breath) Musc Denies numbness and Denies tingling Neuro Denies dizziness, Denies headache(s), Denies numbness, Denies tingling and Denies weakness Psych Denies anxiety and Denies depression Endo Denies fatigue Aller/Immun Denies wheezing Physical exam (Primary Care) Vital Signs: Last Vital Signs Temp 97.9 F 09/07/24 09:09 Pulse 76 09/07/24 09:09 Resp 14 09/07/24 09:09 BP 132/70 09/07/24 09:09 Pulse Ox 98 09/07/24 09:09 Oxygen Delivery Method Room Air 09/07/24 09:09 BMI result Body Mass Index 28.4 Tobacco/Smoking Status: Tobacco use Status Tobacco use date assessed 10/28/23 09/07/24 09:10 Patient Tobacco Use Status Never used Tobacco 09/07/24 09:10 e-Cigarette/Vaping Use Never Used 09/07/24 09:10 PHQ-9: PHQ-9 Score PHQ-9: Total score 3 09/07/24 09:10 Depression Screening Interpretation: Negative Thrive Assessment: Date of Thrive Assessment Date Thrive assessed 09/07/24 09/07/24 09:10 Currently or been in a relationship where the following occur: No concerns reported Const General: well developed; No acute distress Nutritional Appearance: well nourished Orientation/consciousness: patient oriented x3 HENMT Head: Yes normocephalic and Yes atraumatic Eyes General: appearance normal, both eyes and all related structures Pupils: Equal, round and reactive pupils present EOM: EOMs intact bilaterally Resp Effort & Inspection: normal respiratory effort Neuro General: patient oriented x3 and gait normal Cranial nerves: Yes Equal, round and reactive pupils present Psych Affect: normal affect Coding Level of Care Code Est Pt Level 4 (89814) Diagnoses Pre-diabetes R73.03 Anxiety F41.9 Elevated LFTs R79.89 Alcohol use F10.90 Hyperlipidemia E78.5 Additional Codes PHQ-9 - 24057 - PHQ-9 Billing: Yes ([id number]) Assessment & Plan Assessment & Plan (1) Pre-diabetes: Code(s): R73.03 - Prediabetes Category: Medical Plan: A1c?6.1%?in?July. Still?in?pre?diabetes?range. Continue?working?at?a?diet?low?in?sugars?and?starches (2) Anxiety: Code(s): F41.9 - Anxiety disorder, unspecified Category: Medical Plan: Patient?declines?referral?to?therapist.??He?says?he?is?working?things?himself. Let?him?know?he?can?contact?me?for?referral?at?any?time. (3) Elevated LFTs: Code(s): R79.89 - Other specified abnormal findings of blood chemistry Category: Medical Plan: Ongoing?elevated?LFTs?though?appears?to?be?improving And?patient?says?he?has?stopped?drinking.??I?encouraged?him?to?maintain?abstine nce. Follow-up?with?Gastroenterology?as?recommended (4) Alcohol use: Code(s): F10.90 - Alcohol use, unspecified, uncomplicated Category: Social Hx Plan: As?above,?patient?has?stopped?drinking?and?I?encouraged?this Will?continue?to?monitor?liver?enzymes (5) Hyperlipidemia: Code(s): E78.5 - Hyperlipidemia, unspecified Category: Medical Plan: Lipids?are?improving?on?atorvastatin?40?mg?daily?and?improvements?in?his?diet. Triglycerides?now?in?controlled?range?as?well. HDL?mildly?low?and?I?encouraged?exercise Orders: Orders Comprehensive Bode. Panel Fast Today Z00.00 - Encounter for general adult medical examination without abnormal findings Hemoglobin A1c Today R73.01 - Impaired fasting glucose Lipid Panel Today Z00.00 - Encounter for general adult medical examination without abnormal findings
[2024-09-07 09:09] VITALS: BP 132/70; PULSE 76; RESP 14; TEMP 36.6; O2SAT 98; BMI 28.4
--- OUTSIDE RECORDS SUMMARY | 2024-09-07 09:22 | XMS_ITS | Encounter Summary ---
Author Organization [facility] Address [address] [place] [address] Care Team Providers Care Industrial Machine Operator Name Role Phone Biju Troncoso DO Primary Care Provider Unavaila ble Encounter Details Date Type Department Care Team Description 09/06/2022 Orders Only Adult Medicine - [place] [address] [place] [address] Biju Troncoso DO Other fatigue Social History Tobacco Use Types Packs/Day Years Used Date Smoking Tobacco: Never Smokeless Tobacco: Never Alcohol Use Standard Drinks/Week Comments Yes 0 (1 standard drink = 0.6 oz pur e alcohol) 3 drinks a week Sex Assigned at Date Recorded Not on file documented as of this encounter Progress Notes * Biju Troncoso DO - 09/07/2022 8:16 AM EDT Sleep study reviewed. Patient is diagnosed with KIMBERLY. Pulmonary referral sent. Called and discussed with patient documented in this encounter Plan of Treatment Not on file documented as of this encounter Procedures Procedure Name Priority Date/Time Associated Diagnosis Comments SLEEP STUDY-FULL NEURO 16 CHANNEL Routine 08/27/2022 Other fatigue documented in this encounter Results * SLEEP STUDY-FULL NEURO 16 CHANNEL (08/27/2022) Biju Troncoso DO PULMONOLOGY documented in this encounter Visit Diagnoses Diagnosis Other fatigue documented in this encounter Care Teams Industrial Machine Operator Relationship Specialty Start Date End Date Ahmed, Khadiga, DO PCP - General Internal Medicine 04/18/21 documented as of this encounter
--- OUTSIDE RECORDS SUMMARY | 2024-09-07 09:22 | XMS_ITS | Encounter Summary ---
Author Organization [facility] Address [address] [place] [address] Care Team Providers Care Crane Oiler Name Role Phone Matilda Gonzalez MD Primary Care Provider Unavailable Biju Troncoso DO Primary Care Provider Unavaila ble Encounter Details Date Type Department Care Team Description 10/22/2016 Release of Information Medical Records [address] [place] [address] Abstract, Provider Social History Tobacco Use Types [...] on filedocumented in this encounter Care Teams Crane Oiler Relationship Specialty Start Date End Date Matilda Gonzalez MD PCP - General Internal Medicine 07/09/16 Biju Troncoso DO PCP - General Internal Medicine 04/18/21 documented as of this encounter
--- OUTSIDE RECORDS SUMMARY | 2024-09-07 09:22 | XMS_ITS | Encounter Summary ---
Author Organization [facility] Address [address] [place] [address] Care Team Providers Care Video Arcade Manager Name Role Phone Biju Troncoso DO Primary Care Provider Unavaila ble Reason for Visit * Reason Comments E-prescribe Rx Request Encounter Details Date Type Department Care Team Description 07/05/2022 Refill Adult Medicine - [address] [address] Biju Troncoso DO E-prescribe Rx Request Social [...] N/A Patients current insurance carrier is: Payor: [facility] PLAN / Plan: [facility] TYPE III $15/$22 / Product Type: HMO [id number] documented in this encounter Plan of Treatment Not on file documented as of this encounter Visit Diagnoses Not on filedocumented in this encounter Care Teams Video Arcade Manager Relationship Specialty Start Date End Date Biju Troncoso DO PCP - General Internal Medicine 04/18/21 documented as of this encounter
--- OUTSIDE RECORDS SUMMARY | 2024-09-07 09:22 | XMS_ITS | Encounter Summary ---
Author Organization [facility] Address [address] [place] [address] Care Team Providers Care Plaster Lather Name Role Phone Matilda Gonzalez MD Primary Care Provider Unavailable Biju Troncoso DO Primary Care Provider Unavaila ble Reason for Visit * Reason Comments E-prescribe Rx Request Encounter Details Date Type Department Care Team Description 03/26/2020 Refill Adult Medicine - [place] [address] [place] [address] Doreen Hope PA-C E-prescribe Rx Request Social History Tobacco Use Types Packs/Day Years Used Date Smoking Tobacco: Never Smokeless Tobacco: Never Alcohol Use Standard Drinks/Week Comments Yes 0 (1 standard drink = 0.6 oz pur e alcohol) 3 drinks a week Sex Assigned at Date Recorded Not on file documented as of this encounter Miscellaneous Notes * Telephone Encounter - Sepideh Chisholm L.P.N. - 03/28/2020 11:35 AM EST Faxed to pharmacy * Telephone Encounter - Mily Mercer M.A. - 03/28/2020 9:46 AM EST Lab Results Component Value Date CHOL 238 02/25/2019 LDL 120 02/25/2019 HDL 44 02/25/2019 TRIG 372 02/25/2019 Needs labs * Telephone Encounter - Linda Warren - 03/28/2020 9:41 AM EST Patient would like script to be: E-PRESCRIBED/FAXED TO PHARMACY WHEN WAS THE PATIENT'S LAST APPOINTMENT IN ADULT MEDICINE? 11/05/2019 WHEN WAS THE LAST TIME THE PATIENT SAW THEIR PCP? Same as above Does patient have an upcoming appointment? Yes 05/09/2020 (THE MEDICATION REQUESTED IS ON THE MED LIST ABOVE) All of the medications requested were on the CURRENT MEDS list Did you check the Pharmacy information above?: YES Patient wants: 30 -day supply Is this a mail order prescription request ? NO If the refill is from a FAXED refill request what is the RX # listed on the fax? N/A Patients current insurance carrier is: Payor: [facility] PUBLIC PLAN / Plan: [facility] TYPE III $15/$22 / Product Type: HMO [id number] documented in this encounter Plan of Treatment Not on file documented as of this encounter Visit Diagnoses Not on filedocumented in this encounter Care Teams Plaster Lather Relationship Specialty Start Date End Date Matilda Gonzalez MD PCP - General Internal Medicine 07/09/16 Biju Troncoso DO PCP - General Internal Medicine 04/18/21 documented as of this encounter
--- OUTSIDE RECORDS SUMMARY | 2024-09-07 09:22 | XMS_ITS | Encounter Summary ---
Author Organization [facility] Address [address] [place] [address] Care Team Providers Care Senior Financial Consultant Name Role Phone Matilda Gonzalez MD Primary Care Provider Unavailable Biju Troncoso DO Primary Care Provider Unavaila ble Encounter Details Date Type Department Care Team Description 08/15/[address] [facility] [address] [place] [address] Matilda Gonzalez MD Social History Tobacco Use Types Packs/Day Years [...] on filedocumented in this encounter Care Teams Senior Financial Consultant Relationship Specialty Start Date End Date Matilda Gonzalez MD PCP - General Internal Medicine 07/09/16 Biju Troncoso DO PCP - General Internal Medicine 04/18/21 documented as of this encounter
== END 2024-09-07 09:38 | disposition home or self-care (01) ==
LOC: HO.HMCFM 08:54
PROVIDERS: PCP Family Medicine; Visit Provider Family Medicine
DX: R73.03 Prediabetes (principal); F41.9 Anxiety disorder, unspecified; R79.89 Other specified abnormal findings of blood chemistry; F10.90 Alcohol use, unspecified, uncomplicated; E78.5 Hyperlipidemia, unspecified

== ENCOUNTER → 2024-09-07 08:53 | Outpatient (BNVA) | payer BC, SELFPAY | PROVIDERS: PCP Family Medicine; Visit Provider Family Medicine | DX: R73.03 Prediabetes (principal); F41.9 Anxiety disorder, unspecified; R79.89 Other specified abnormal findings of blood chemistry; E78.5 Hyperlipidemia, unspecified; F10.90 Alcohol use, unspecified, uncomplicated; Z79.899 Other long term (current) drug therapy | CPT/HCPCS: 96127 ==

== ENCOUNTER 2024-09-14 09:39 | Outpatient (AMB) | payer BC, SELFPAY ==
[2024-09-14 09:45] VITALS: BMI 28.7
--- NOTE | 2024-09-14 09:45 | A.OFFVIS_ITS ---
VS Expanded 09/14/24 09:45 Height 5 ft 8 in Weight 188 lb 11.451 oz BMI 28.7 Intake Visit Reasons: predm Allergies No Known Allergies Allergy (Verified 09/07/24 09:08) Nutrition Presentation Details: Pt presents for MNT f/u for pre DM Pt reports working on low fat/fiber rich foods Reports increased hunger when reducing portion sizes abstaining from etoh consumption physical activity - likes disc golf BS Monitoring Most Recent Diabetes Results: Cholesterol 120 mg/dL (<200) 07/27/24 HDL Cholesterol 30 mg/dL (>40) L 07/27/24 Triglycerides 113 mg/dL (<150) 07/27/24 Creatinine 0.92 mg/dL (0.5-1.4) 07/27/24 Blood Urea Nitrogen 13 mg/dL (9-16) 07/27/24 Sodium 140 mmol/L (135-145) 07/27/24 Potassium 4.3 mmol/L (3.3-5.1) 07/27/24 Chloride 106 mmol/L (96-108) 07/27/24 Carbon Dioxide 27 mmol/L (22-29) 07/27/24 Calcium 9.8 mg/dL (8.4-10.2) 07/27/24 AST 37 U/L (5-37) 07/27/24 ALT 86 U/L (0-40) H 07/27/24 Total Protein 7.5 g/dL (6.5-8.0) 07/27/24 Albumin 4.8 g/dL (3.5-5.0) 07/27/24 PFSH Medical History High blood cholesterol Sleep apnea Surgical History [place] teeth extracted Family History Mother High cholesterol Father High blood pressure Arthritis Brother High blood pressure Social History Housing: Apartment Patient Tobacco Use Status: Never used Tobacco e-Cigarette/Vaping Use: Never Used service: No Current occupational status: employed Current occupation: pest control Cognitive needs: No Hearing needs: No Vision needs: Yes (Patient wears precription glasses.) Assessment & Plan Assessment & Plan (1) Pre-diabetes: Code(s): R73.03 - Prediabetes Category: Medical Plan: A1c 6.1% on 07/2024 Wt: 86 Kg ( 04/28 ), 05/2024, 09/27 Est kcal needs as per MSJ: 2400 (40% carb, 30% protein/fat) Est fluid needs as per 25-30 ml/d: 2600 Est prot per day as per 1 g/kg bw: 86 Recommend fiber intake : 8-10 g per day and gradually increase to 25-28 g per day for women and 35-38 g for men or as tolerated Recommend sodium intake per day : less than 2300 mg Educated patient on: ( R = reviewed V = verbalizes understanding N/R = needs review N/A = not applicable * Food sources of carbohydrate, adequate serving sizes and its role in various health conditions: R * Differences between complex carbohydrates a simple carbohydrates, role of fiber in diet: R * Lean protein sources of foods: R * Differences between types of fats and role in diet (mono on saturated fat fatty acids, saturated fatty acids, trans fats): R * Food sources of sodium in salt and healthy modifications for heart health in kidney health: R V R/V * Vitamins and minerals: R V N/R * Healthy plate method concept: R * Physical activity: Benefits a precaution: R * Hypoglycemia protocol (rule of 15): R V N/R * Dietary prevention of Hyperglycemia: R Patient Instructions: Continue abstaining from Etoh continue following healthy plate method Choose healthy snack in between meals (fruts and nuts/protein bars/yogurt/milk as example) to prevent being overly hungry and having larger portions later on Coding Level of Care Code Nutr Indiv Subseq (30645) Diagnoses Pre-diabetes R73.03 Time Spent (min) 30
== END 2024-09-14 10:21 | disposition home or self-care (01) ==
LOC: HO.ENCR 09:39
PROVIDERS: PCP Family Medicine; Visit Provider Dietitian, Registered
DX: R73.03 Prediabetes (principal)

== ENCOUNTER → 2024-09-14 09:39 | Outpatient (BNVA) | payer BC, SELFPAY | PROVIDERS: PCP Family Medicine; Visit Provider Dietitian, Registered | DX: R73.03 Prediabetes (principal); Z71.3 Dietary counseling and surveillance | CPT/HCPCS: 97803 ==

== ENCOUNTER 2024-09-23 09:01 | Outpatient (AMB) | payer BC, SELFPAY ==
--- NOTE | 2024-09-23 09:26 | AM.OFFWIN_ITS ---
Intake Vital Signs 09/23/24 09:29 Weight 189 lb BP 124/90 H Blood Pressure Location Lt brachial Position Sitting Pulse 58 Pulse Source Pulse Oximeter Pulse Oximetry (%) 94 Oxygen Delivery Method Room Air Intake Visit Reasons: EP-vertigo Intake Note: Patient here for vertigo that started this morning. he states it has happened in the past but did not get evaluated. Patient Tobacco Use Status: Never used Tobacco Allergies No Known Allergies Allergy (Verified 09/23/24 09:36) Do you need a note to return to daycare/school/sports/work: No HPI HPI Comments History of Present Illness Details History - The patient is a 44-year-old male with past med hx of KIMBERLY and HLD presenting with vertigo precipitated by rolling onto his right side x 2 episodes. - Vertigo accompanied by nausea severe e nough to cause emesis upon first onset over the winter, with recent recurrence at around 3 a.m. today, which resolved with no intervetions almost immediately however it prevented sleep due to discomfort and anxiety. He did not vomit but still feels a little car sick and nauseous. Is not currently dizzy. - No symptoms of head congestion, ear pa in, or sinus issues are present, alth ough there is a history of head pressure issues, ear infections or ear wax accumulation, with noted complaints in the distant past related to water exposure in the ears. - Denies seasonal allergies, does not ta ke daily allergy pill Physical Exam General: Cooperative, healthy appearing, comfortable and no acute distress Orientation/consciousness: Patient oriented x3 Limitations: No limitations Head: Normal to inspection Ears: Hearing grossly normal bilaterally, external ears normal, fluid present left TM, and TM's normal right Nose: Normal external nose present, Normal nares present and No nasal discharge present Face and sinus: Normal facial exam Eyes: Appearance normal, both eyes and all related structures Neck: Normal visual inspection Respiratory: Normal respiratory effort, able to speak in complete sentences, Actively coughing, no respiratory distress, not tachypneic, no tripod positioning and no use of accessory muscles Skin: No rashes or lesions noted Neuro: Patient oriented x3 Extremities: Normal to inspection and Yes no clubbing, cyanosis or edema PFSH Medical History High blood cholesterol Sleep apnea Surgical History [place] teeth extracted Family History Mother High cholesterol Father High blood pressure Arthritis Brother High blood pressure Social History Housing: Apartment Patient Tobacco Use Status: Never used Tobacco e-Cigarette/Vaping Use: Never Used service: No Current occupational status: employed Current occupation: pest control Cognitive needs: No Hearing needs: No Vision needs: Yes (Patient wears precription glasses.) Review of Systems Const All systems reviewed & are unremarkable except as noted in HPI and below Physical Exam Vital Signs: Last Vital Signs Pulse 58 09/23/24 09:29 BP 124/90 H 09/23/24 09:29 Pulse Ox 94 09/23/24 09:29 Oxygen Delivery Method Room Air 09/23/24 09:29 Assessment & Plan Assessment & Plan (1) BPPV (benign paroxysmal positional vertigo): Code(s): H81.10 - Benign paroxysmal vertigo, unspecified ear Qualifiers: Laterality: right Qualified Code(s): H81.11 - Benign paroxysmal cyrus tigo, right ear Plan: VSS, pt well appearing and PE remarkable for fluid left TM, likely causing his right sided BPPV which typically self corrects quickly. I will provide instructions for performing the Russell maneuver to treat Benign Paroxysmal Positional Vertigo (BPPV) and prescribe Meclizine 25 mg, advising administration twice daily as required, noting potential sedation. I will instruct the patient to trial the Russell maneuver during nocturnal vertigo episodes, if it doesn't spontaneously resolve, underscoring the relation to inner ear fluid dynamics rather than cervical/shoulder considerations. Emphasis will be placed on educational understanding of inner ear mechanics and symptom management through prescribed therapy and home maneuvers. Also recommended daily allergy pill Patient was informed and verbally consented to the use of an ambient scribe for clinic note documentation during this visit Medications: New meclizine 25 mg PO BID PRN 14 tabs 0RF dizziness Coding Level of Care Code Est Pt Level 3 (07131) Diagnoses Benign paroxysmal positional vertigo of right ear H81.11 Laterality: right
[2024-09-23 09:29] VITALS: BP 124/90; PULSE 58; O2SAT 94
== END 2024-09-23 10:04 | disposition home or self-care (01) ==
PROVIDERS: PCP Family Medicine; Visit Provider Physician Assistant
DX: H81.11 Benign paroxysmal vertigo, right ear (principal)

== ENCOUNTER → 2024-09-23 09:01 | Outpatient (BNVA) | payer BC, SELFPAY | PROVIDERS: PCP Family Medicine; Visit Provider Physician Assistant ==

== ENCOUNTER 2024-12-14 09:02 | Outpatient (AMB) | payer BC, SELFPAY ==
[2024-12-14 09:08] VITALS: BMI 28.0
--- NOTE | 2024-12-14 09:08 | A.OFFVIS_ITS ---
VS Expanded 12/14/24 09:08 Height 5 ft 8 in Weight 184 lb 1.376 oz BMI 28.0 Intake Visit Reasons: pre dm Allergies No Known Allergies Allergy (Verified 09/23/24 09:36) Nutrition Presentation Details: Pt presents for MNT for PRE DM Pt reports doing well, working on choosing fiber rich foods , lower carb options Doing well, no concerns at this time food frequency: fruits: 1-2/d fish : 1-2/wk fluids: water/tea vegetables: 4/d physically activity> 150 min/wk etoh/smoking: denies BS Monitoring Most Recent Diabetes Results: Cholesterol, (<200) 120 mg/dL 07/27/24 HDL Cholesterol, (>40) 30 mg/dL L 07/27/24 Triglycerides, (<150) 113 mg/dL 07/27/24 Creatinine, (0.5-1.4) 0.92 mg/dL 07/27/24 BUN, (9-16) 13 mg/dL 07/27/24 Sodium, (135-145) 140 mmol/L 07/27/24 Potassium, (3.3-5.1) 4.3 mmol/L 07/27/24 Chloride, (96-108) 106 mmol/L 07/27/24 Carbon Dioxide, (22-29) 27 mmol/L 07/27/24 Calcium, (8.4-10.2) 9.8 mg/dL Δ 07/27/24 AST, (5-37) 37 U/L 07/27/24 ALT, (0-40) 86 U/L H 07/27/24 Total Protein, (6.5-8.0) 7.5 g/dL 07/27/24 Albumin, (3.5-5.0) 4.8 g/dL 07/27/24 [facility] Medical History High blood cholesterol Sleep apnea Surgical History [place] teeth extracted Family History Mother High cholesterol Father High blood pressure Arthritis Brother High blood pressure Social History Housing: Apartment Patient Tobacco Use Status: Never used Tobacco e-Cigarette/Vaping Use: Never Used service: No Current occupational status: employed Current occupation: pest control Cognitive needs: No Hearing needs: No Vision needs: Yes (Patient wears precription glasses.) Assessment & Plan Assessment & Plan (1) Pre-diabetes: Code(s): R73.03 - Prediabetes Category: Medical Plan: A1c 6.1% on 07/2024 Wt: 86 Kg ( 04/28 ), 05/2024, 09/27, 84 kg (12/28) Est kcal needs as per MSJ: 2400 (40% carb, 30% protein/fat) Est fluid needs as per 25-30 ml/d: 2500 Est prot per day as per 1 g/kg bw: 80 Recommend fiber intake : 8-10 g per day and gradually increase to 25-28 g per day for women and 35-38 g for men or as tolerated Recommend sodium intake per day : less than 2300 mg Educated patient on: ( R = reviewed V = verbalizes understanding N/R = needs review N/A = not applicable * Food sources of carbohydrate, adequate serving sizes and its role in various health conditions: R * Differences between complex carbohydrates a simple carbohydrates, role of fiber in diet: R ,V * Lean protein sources of foods: R * Differences between types of fats and role in diet (mono on saturated fat fatty acids, saturated fatty acids, trans fats): R * Food sources of sodium in salt and healthy modifications for heart health in kidney health: R * Vitamins and minerals: R V N/R * Healthy plate method concept: R * Physical activity: Benefits a precaution: R * Hypoglycemia protocol (rule of 15): R V N/R * Dietary prevention of Hyperglycemia: R Patient Instructions: Continue working on following healthy plate method , choosing lean protein foods and high fiber food options Coding Level of Care Code Nutr Indiv Subseq (07701) Diagnoses Pre-diabetes R73.03 Time Spent (min) 30
--- OUTSIDE RECORDS SUMMARY | 2024-12-14 09:27 | XMS_ITS ---
Author Name [facility] Organization Unknown Results Test Name/Text Value Interpretation Date Range Source eGFR >60.0 mL/min Normal 06/04/2023 - [facility] eGFR Afri-Amer >60.0 mL/min Normal 06/04/2023 - [facility] Alk Phos 99.0 IntUnit/L Normal 06/04/2023 43 - 122 [facility] ALT 98.0 IntUnit/L Above high normal 06/04/2023 - [facility] Total Protein 8.3 g/dL Normal 06/04/2023 6 - 8.3 [facility] Potassium Level 3.8 mmol/L Normal 06/04/2023 3.5 - 5.1 [facility] Creatinine 0.89 mg/dL Normal 06/04/2023 0.7 - 1.3 [facility] Calcium Level 10.5 mg/dL Normal 06/04/2023 8.2 - 10.5 [facility] CO2 22.0 mmol/L Normal 06/04/2023 22 - 31 [facility] BUN 13.0 mg/dL Normal 06/04/2023 7 - 21 [facility] Bili Total 0.8 mg/dL Normal 06/04/2023 0.1 - 1.3 [facility] Globulin Calc 3.1 g/dL Normal 06/04/2023 2.2 - 3.5 [facility] AST 39.0 IntUnit/L Normal 06/04/2023 14 - 50 [facility] Sodium Level 139.0 mmol/L Normal 06/04/2023 136 - 146 [facility] BUN/Creat Ratio 14.6 Normal 06/04/2023 10 - 20 [facility] Albumin Level 5.2 g/dL Above high normal 06/04/2023 3.2 - 5 .1 [facility] Chloride 104.0 mmol/L Normal 06/04/2023 98 - 108 [facility] Anion Gap 13.0 mmol/L Normal 06/04/2023 6 - 14 [facility] Glucose Level 101.0 mg/dL Above high normal 06/04/2023 74 - 100 [facility] MCHC 34.1 g/dL Normal 06/04/2023 32 - 36 [facility] Baso # 0.1 thous/mm3 Normal 06/04/2023 0 - 0.1 [facility] Lymph % 24.5 % Normal 06/04/2023 17 - 48 [facility] HGB 15.4 g/dL Normal 06/04/2023 13.5 - 18 [facility] RDW 13.2 % Normal 06/04/2023 11.5 - 14 [facility] Eos % 0.7 % Normal 06/04/2023 0 - 6 [facility] Platelet 284.0 thous/mm3 Normal 06/04/2023 150 - 450 [facility] MCH 29.4 pg Normal 06/04/2023 27 - 31 [facility] [place] # 0.6 thous/mm3 Normal 06/04/2023 0 - 0.9 [facility] Lymph # 2.0 thous/mm3 Normal 06/04/2023 1.5 - 3.5 [facility] RBC 5.25 mill/mm3 Normal 06/04/2023 4.7 - 6 [facility] Gran # 5.4 thous/mm3 Normal 06/04/2023 1.5 - 6.6 [facility] WH HCT 45.2 % Normal 06/04/2023 42 - 52 [facility] Gran % 66.7 % Normal 06/04/2023 40 - 74 [facility] Baso % 0.7 % Normal 06/04/2023 0 - 1 [facility] WBC 8.0 thous/mm3 Normal 06/04/2023 4 - 10.5 [facility] MPV 7.6 fL Normal 06/04/2023 6 - 9.5 [facility] MCV 86.2 fL Normal 06/04/2023 78 - 100 [facility] Eos # 0.1 thous/mm3 Normal 06/04/2023 0 - 0.6 [facility] [place] % 7.4 % Normal 06/04/2023 0 - 12 [facility] Carboxyhemoglobin 2.0 % Above high normal 06/04/2023 0 - 1.5 [facility] Encounters Encounter Type Encounter Reason Primary Diagnosis Location Date Emergency co exposure at work [facility] al 06/04/2023 Emergency concentra sent pt he re for further treatment CO exposure [facility] 06/04/2023 Care Team Organization Name Specialty Phone Email Start Date End Da te [facility] PCP Patient_Doesn't_ Have Primary Care 06/04/2023 [facility] Biju Troncoso DO Primary Care 10/12/202212/04
== END 2024-12-14 15:11 | disposition home or self-care (01) ==
LOC: HO.ENCR 09:02
PROVIDERS: PCP Family Medicine; Visit Provider Dietitian, Registered
DX: R73.03 Prediabetes (principal)

== ENCOUNTER → 2024-12-14 09:02 | Outpatient (BNVA) | payer BC, SELFPAY | PROVIDERS: PCP Family Medicine; Visit Provider Dietitian, Registered | DX: R73.03 Prediabetes (principal) | CPT/HCPCS: 97803 ==

== ENCOUNTER 2025-01-11 07:59 | Outpatient (REF) | payer BC, SELFPAY ==
[2025-01-11 16:11] LABS: Alanine Aminotransferase 104 U/L (0-40); Albumin Level 5.2 g/dL (3.5-5.0); Alkaline Phosphatase 126 U/L (39-117); Anion Gap 14 (12-20); Aspartate Amino Transferase 36 U/L (5-37); Blood Urea Nitrogen 19 mg/dL (9-16); Calcium 9.9 mg/dL (8.4-10.2); Carbon Dioxide 26 mmol/L (22-29); Chloride 106 mmol/L (96-108); Cholesterol 159 mg/dL (<200); Estimated Glomerular Filt Rate > 60; HDL Cholesterol 31 mg/dL (>40); Potassium 3.7 mmol/L (3.3-5.1); Sodium 142 mmol/L (135-145); Total Protein 7.7 g/dL (6.5-8.0); Triglycerides 187 mg/dL (<150)
[2025-01-11 16:14] LABS: Hemoglobin A1C 191.6095 umol/L; Total Hemoglobin (HGBA1C) 4288.3291 umol/L
== END 2025-01-11 08:00 | disposition home or self-care (01) ==
LOC: HO.WFDLDS 07:59
PROVIDERS: Visit Provider Family Medicine
DX: Z00.00 Encounter for general adult medical examination without abnormal findings (principal); R73.01 Impaired fasting glucose; Z13.6 Encounter for screening for cardiovascular disorders
CPT/HCPCS: 36415; 80053; 80061; 83036

== ENCOUNTER 2025-01-11 09:25 | Outpatient (AMB) | payer BC, SELFPAY ==
--- NOTE | 2025-01-11 09:30 | MHC.PC.OV ---
Vital Signs 01/11/25 09:33 Height 5 ft 8 in Weight 188 lb 6 oz BMI 28.6 BP 146/84 H Blood Pressure Location Rt brachial Position Sitting Pulse 85 Pulse Source Pulse Oximeter Pulse Oximetry (%) 96 Oxygen Delivery Method Room Air Intake Visit Reasons: f/u pre-diabetes, chronic conditions Allergies No Known Allergies Allergy (Verified 01/11/25 09:35) Tobacco use date assessed: 01/11/25 Dental Screening Dental Screen Date: 01/11/25 Did you have a dental visit in the last 12 months?: Yes Did you have a dental problem in the last 6 months where you did not have access to dental care?: No Was dental information given to patient?: Patient has dentist HPI f/u pre-diabetes, chronic conditions HPI Details Patient presents to follow-up Pre diabetes, hyperlipidemia and elevated liver enzymes A1c 6.2% He had only just gotten his labs drawn this morning and I do not have results back yet Still working on diet low in sugars and starches. 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 Blood pressure remains high No new complaints. Patient feels well. [facility] Medical History High blood cholesterol Sleep apnea Surgical History [place] teeth extracted Family History Mother High cholesterol Father High blood pressure Arthritis Brother High blood pressure Social History Housing: Apartment Patient Tobacco Use Status: Never used Tobacco e-Cigarette/Vaping Use: Never Used service: No Current occupational status: employed Current occupation: pest control Cognitive needs: No Hearing needs: No Vision needs: Yes (Patient wears precription glasses.) Questionnaire PHQ-9 Over the last 2 weeks, how often have you been bothered by any of the following problems? 1. Little interest or pleasure in doing things: not at all 2. Feeling down, depressed, or hopeless: several days 3. Trouble falling or staying asleep, or sleeping too much: not at all 4. Feeling tired or having little energy: several days 5. Poor appetite or overeating: several days 6. Feeling bad about yourself - or that you are a failure or have let yourself or your family down: not at all 7. Trouble concentrating on things, such as reading the newspaper or watching television: not at all 8. Moving or speaking so slowly that other people could have noticed. Or the opposite - being so fidgety or restless that you have been moving around a lot more than usual: not at all 9. Thoughts that you would be better off or of hurting yourself in some way: not at all Total score: 3 Depression Screening Interpretation: Negative Depression Screening Done: Yes Source: Developed by Drs. Ming Draper, Marycarmen Foley, Flakito Bowen and colleagues, with an educational faraz from [employer]. Thrive Questionnaire Date Thrive assessed: 09/07/24 I am a: Patient What is your living situation today?: I have a steady place to live Within the past 12 months, did the food you bought not last and you didn't have the money to get more?: Never true Within the past 12 months, did you worry whether your food would run out before you got money to buy more?: Never true Do you have trouble paying for medicines?: No Do you have trouble getting transportation to medical appointments?: No Do you have trouble paying your heating and electricity bill?: No Do you have trouble taking care of your child, family member or friend?: No Do you have trouble with day-to-day activities such as bathing, preparing meals, shopping, managing finances, etc.?: No Are you currently unemployed and looking for a job?: No Are you interested in more education?: Yes Please select the resources that you would like help with: None Currently or been in a relationship where the following occur: No concerns reported THRIVE Score: 0 AUDIT C Alcohol Use Questionnaire (AUDIT-C) 1. How often do you have a drink containing alcohol?: Never 3. How often do you have six or more drinks on one occasion?: Never Total Score: 0 ISHAAN-7 AMB Questionnaire ISHAAN-7 Date ISHAAN - 7 assessed: 09/07/24 Feeling nervous, anxious, or on edge: 1 = Several days Not being able to stop or control worryin = Several days Worrying too much about different things: 1 = Several days Trouble relaxin = Several days Being so restless that it is hard to sit still: 0 = Not at all Becoming easily annoyed or irritable: 0 = Not at all Feeling afraid as if something awful might happen: 1 = Several days Total ISHAAN-7 score (0-4 normal; 5-9 mild; 10-14 moderate; 15-21 severe): 5 Source: Developed by Drs. Ming Draper, Marycarmen Foley, Flakito Bowen and colleagues, with an educational faraz from [employer]. Review of Systems Const Denies chills, Denies fatigue, Denies fever(s), Denies headache(s) and Denies weakness ENT Denies dizziness and Denies headache(s) Card Denies chest pain, Denies lightheadedness, Denies dyspnea and Denies other (Palpitations) Resp Denies cough, Denies dyspnea, Denies wheezing and Denies other ( shortness of breath) Musc Denies numbness and Denies tingling Neuro Denies dizziness, Denies headache(s), Denies numbness, Denies tingling, Denies paresthesias and Denies weakness Psych Denies anxiety and Denies depression Endo Denies fatigue Aller/Immun Denies wheezing Physical exam (Primary Care) Vital Signs: Last Vital Signs Pulse 85 01/11/25 09:33 BP 146/84 H 01/11/25 09:33 Pulse Ox 96 01/11/25 09:33 Oxygen Delivery Method Room Air 01/11/25 09:33 BMI result Body Mass Index 28.6 Tobacco/Smoking Status: Tobacco use Status Tobacco use date assessed 01/11/25 01/11/25 09:40 Patient Tobacco Use Status Never used Tobacco 01/11/25 09:31 e-Cigarette/Vaping Use Never Used 01/11/25 09:31 PHQ-9: PHQ-9 Score PHQ-9: Total score 3 01/11/25 09:40 Depression Screening Interpretation: Negative Thrive Assessment: Date of Thrive Assessment Date Thrive assessed 09/07/24 01/11/25 09:31 Currently or been in a relationship where the following occur: No concerns reported Const General: no acute distress and well developed Nutritional Appearance: well nourished Orientation/consciousness: patient oriented x3 HENMT Head: Yes normocephalic and Yes atraumatic Eyes General: appearance normal, both eyes and all related structures Pupils: Equal, round and reactive pupils present EOM: EOMs intact bilaterally Resp Effort & Inspection: normal respiratory effort Auscultation: clear to auscultation bilaterally Cardio Rate: regular rate Rhythm: regular rhythm Heart sounds: S1 normal heart sound present, S2 normal heart sound present, no gallops, no murmurs and no rubs Neuro General: patient oriented x3 and gait normal Cranial nerves: Yes Equal, round and reactive pupils present Psych Affect: normal affect Results AMB Hemoglobin A1c AMB Hemoglobin A1c 6.2 % Last Edit by Luiza Hope CMA on 01/11/25 09:47 Coding Level of Care Code Est Pt Level 4 (34145) Diagnoses Hypertension, essential I10 Pre-diabetes R73.03 Hyperlipidemia E78.5 Elevated ALT measurement R74.01 Hepatic steatosis K76.0 Assessment & Plan Assessment & Plan (1) Hypertension, essential: Code(s): I10 - Essential (primary) hypertension Category: Medical Plan: Blood pressure is high more often than not Multiple readings with high blood pressure Start losartan We will follow-up at next visit (2) Pre-diabetes: Code(s): R73.03 - Prediabetes Category: Medical Plan: A1c climbed from 6.1% to 6.2%. In pre diabetes range but still creeping up Patient has seen nutrition He is somewhat frustrated at lack of results. Encouraged him to keep working and a diet low in sugars and starches and try to get exercises regularly as possible Will continue to monitor (3) Hyperlipidemia: Code(s): E78.5 - Hyperlipidemia, unspecified Category: Medical Plan: He is taking atorvastatin 40 mg daily as prescribed Patient only got his labs drawn this morning so not available yet Will call him if action is required (4) Elevated ALT measurement: Code(s): R74.01 - Elevation of levels of liver transaminase levels Category: Medical (5) Hepatic steatosis: Code(s): K76.0 - Fatty (change of) liver, not elsewhere classified Category: Medical Plan Liver enzymes have been decreasing He had stopped drinking. Ultrasound has shown hepatic steatosis but also elevated elastography He has an appointment with Gastroenterology Repeat labs were just drawn today so I do not have the results yet. Orders: Orders AMB Hemoglobin A1c Today Z13.9 - Encounter for screening, unspecified Medications: New losartan 25 mg PO DAILY 90 tabs 3RF 90 days
[2025-01-11 09:33] VITALS: BP 146/84; PULSE 85; O2SAT 96; BMI 28.6
--- OUTSIDE RECORDS SUMMARY | 2025-01-11 10:38 | XMS_ITS | Encounter Summary ---
Author Organization [facility] Address [address] [place] [address] Care Team Providers Care Plant Wrapper Name Role Phone Matilda Gonzalez MD Primary Care Provider Unavailable Biju Troncoso DO Primary Care Provider Unavaila ble Reason for Visit * Reason Comments E-prescribe Rx Request Encounter Details Date Type Department Care Team Description 03/26/2020 Refill Adult Medicine - [address] [place] [address] Doreen Hope PA-C E-prescribe Rx Request Social [...] N/A Patients current insurance carrier is: Payor: [facility] [employer] / Plan: [facility] TYPE III $15/$22 / Product Type: HMO [id number] documented in this encounter Plan of Treatment Not on file documented as of this encounter Visit Diagnoses Not on filedocumented in this encounter Care Teams Plant Wrapper Relationship Specialty Start Date End Date Matilda Gonzalez MD PCP - General Internal Medicine 07/09/16 Biju Troncoso DO PCP - General Internal Medicine 04/18/21 documented as of this encounter
--- OUTSIDE RECORDS SUMMARY | 2025-01-11 10:38 | XMS_ITS | Encounter Summary ---
Author Organization [facility] Address [address] [place] [address] Care Team Providers Care Ground Water Pump Installer Name Role Phone Matilda Gonzalez MD Primary Care Provider Unavailable Biju Troncoso DO Primary Care Provider Unavaila ble Encounter Details Date Type Department Care Team Description 08/15/[address] [address] Matilda Gonzalez MD Social History Tobacco Use [...] on filedocumented in this encounter Care Teams Ground Water Pump Installer Relationship Specialty Start Date End Date Matilda Gonzalez MD PCP - General Internal Medicine 07/09/16 Biju Troncoso DO PCP - General Internal Medicine 04/18/21 documented as of this encounter
--- OUTSIDE RECORDS SUMMARY | 2025-01-11 10:38 | XMS_ITS | Encounter Summary ---
Author Organization [facility] Address [address] [place] [address] Care Team Providers Care Email Campaign Manager Name Role Phone Biju Troncoso DO Primary Care Provider Unavaila ble Reason for Visit * Reason Comments E-prescribe Rx Request Encounter Details Date Type Department Care Team Description 07/05/2022 Refill Adult Medicine - [address] [address] Biju Troncoso DO E-prescribe Rx Request Social [...] N/A Patients current insurance carrier is: Payor: [facility] PL[facility] / Plan: [facility] TYPE III $15/$22 / Product Type: HMO [id number] documented in this encounter Plan of Treatment Not on file documented as of this encounter Visit Diagnoses Not on filedocumented in this encounter Care Teams Email Campaign Manager Relationship Specialty Start Date End Date Biju Troncoso DO PCP - General Internal Medicine 04/18/21 documented as of this encounter
--- OUTSIDE RECORDS SUMMARY | 2025-01-11 10:38 | XMS_ITS | Encounter Summary ---
Author Organization [facility] Address [address] [place] [address] Care Team Providers Care Lime Kiln And Recausticizing Operator Name Role Phone Biju Troncoso DO Primary Care Provider Unavaila ble Encounter Details Date Type Department Care Team Description 09/06/2022 Orders Only Adult Medicine - [place] [address] [place] [address] Bjiu Troncoso DO Other fatigue Social History Tobacco [...] fatigue documented in this encounter Care Teams Lime Kiln And Recausticizing Operator Relationship Specialty Start Date End Date Ahmed, Khadiga, DO PCP - General Internal Medicine 04/18/21 documented as of this encounter
== END 2025-01-11 10:00 | disposition home or self-care (01) ==
LOC: HO.HMCFM 09:26
PROVIDERS: PCP Family Medicine; Visit Provider Family Medicine
DX: I10 Essential (primary) hypertension (principal); R73.03 Prediabetes; E78.5 Hyperlipidemia, unspecified; R74.01 Elevation of levels of liver transaminase levels; K76.0 Fatty (change of) liver, not elsewhere classified; Z13.9 Encounter for screening, unspecified

== ENCOUNTER 2025-01-18 08:59 | Outpatient (AMB) | payer BC, SELFPAY ==
--- NOTE | 2025-01-18 09:00 | MHC.OFFVIS ---
Intake Visit Reasons: 6 mo f/u fatty liver Intake Note: Hermilo in telehealth visit follow up of fatty liver. CC: Patient states that he stopped drinking alcohol 6 months ago. Denies having any GI symptoms or concerns. Allergies No Known Allergies Allergy (Verified 01/18/25 09:00) HPI Comments Details: 44 y.o M with PMH prediabetes and HLD who is here for elevated LFTs. Pt reports being told about abnormal LFTs almost 10 years ago. This was attributed to statin use initially. Pt drinks 1-2 drinks of hard liquor daily. No smoking. No drug use. Hep serologies negative 2023. No fam hx of liver dz. On statin for HLD. Has prediabetes but not on meds yet. 12/23/23: Elastography 1. Hepatic steatosis. 2. Elastography: Liver elastography measurements are consistent with a moderate risk for clinically significant liver fibrosis (METAVIR Stage F2-F3). 01/18/25: Here as tele health follow-up. No acute gastrointestinal issues including abdominal pain, nausea, vomiting. Results reviewed. Apart from high BOBBY, the remaining are normal. Has been abstaining strictly from alcohol since last visit. He has also been working on his diet and lifestyle, meets with floor cashier. However, LFTs are largely unchanged, and he does feel somewhat discouraged. Laboratory Tests 06/04/24 07/27/24 01/11/25 20:25 09:26 08:02 Hgb 15.2 Hct 43.0 Plt Count 237 INR 1.0 Hemoglobin A1c % 6.2 H % Saturation 25 Ferritin 215 AST 37 36 ALT 86 H 104 H Alkaline Phosphatase 111 126 H Albumin 5.2 H [id number] 130 Ceruloplasmin 17 Triglycerides 113 187 H Cholesterol 120 159 TSH 1.28 IgA 89 BOBBY Screen POSITIVE A BOBBY Titer 1:160 H Anti-Mitochondrial Ab NEGATIVE Anti-Smooth Muscle Ab <20 Tiss Transglutamin IgA <1.0 Nila/Kid Microsom Ab Int <=20.0 PFSH Medical History High blood cholesterol Sleep apnea Surgical History [place] teeth extracted Family History Mother High cholesterol Father High blood pressure Arthritis Brother High blood pressure Social History Housing: Apartment Patient Tobacco Use Status: Never used Tobacco e-Cigarette/Vaping Use: Never Used service: No Current occupational status: employed Current occupation: pest control Cognitive needs: No Hearing needs: No Vision needs: Yes (Patient wears precription glasses.) Review of Systems Const All systems reviewed & are unremarkable except as noted in HPI and below Physical Exam Exam Exam: Telehealth visit Telehealth Telehealth Telehealth Platform: Telephone Location of provider rendering services: practice address Location of patient: address on file Patient Identification confirmed using: Name, : Yes Telehealth method: voice only Patient verbally consented to treatment: Yes Patient verbally consented to billing insurance company: Yes Patient informed of any privacy concerns related to visit: Yes Minutes spent on Phone/Video with Pt.: 13 Assessment & Plan Assessment & Plan (1) Hepatic steatosis: Code(s): K76.0 - Fatty (change of) liver, not elsewhere classified Category: Medical (2) Pre-diabetes: Code(s): R73.03 - Prediabetes Category: Medical (3) Hyperlipidemia: Code(s): E78.5 - Hyperlipidemia, unspecified Category: Medical (4) Elevated LFTs: Code(s): R79.89 - Other specified abnormal findings of blood chemistry Category: Medical (5) Alcohol use: Code(s): F10.90 - Alcohol use, unspecified, uncomplicated Category: Social Hx Plan Pt with elevated LFTs and hepatic steatosis likely 2/2 metALD. However, despite abstaining from alcohol and increasing exercise and dietary discretion, LFTs are largely unchanged. In addition, BOBBY is also positive, although remaining autoimmune hepatitis serologies negative. Reviewed with the patient, that would recommend exploring prediabetes treatment and incorporating cardio exercise for least 20 minutes per day. Reassured him that Fib 4 0.77 - i.e no advanced fibrosis. Plan: - recheck LFTs, lipid profile and A1c in 6 months - if no meaningful improvement in LFTs at that point, low threshold to proceed with liver biopsy - otherwise will be discharged back to his PCP's care - patient also reminded re rheumatology consultation coming up in March Follow-up in 6 months contingent on results Orders: Orders Hemoglobin A1c 6 Months R79.89 - Other specified abnormal findings of blood chemistry Liver Panel 6 Months R79.89 - Other specified abnormal findings of blood chemistry Lipid Panel 6 Months R79.89 - Other specified abnormal findings of blood chemistry Coding Level of Care Code Tele Est Pt Level 4 (68451) Diagnoses Hepatic steatosis K76.0 Pre-diabetes R73.03 Hyperlipidemia E78.5 Elevated LFTs R79.89 Alcohol use F10.90
== END 2025-01-18 16:49 | disposition home or self-care (01) ==
LOC: HO.HGI 08:59
PROVIDERS: PCP Family Medicine; Visit Provider Internal Medicine
DX: K76.0 Fatty (change of) liver, not elsewhere classified (principal); R73.03 Prediabetes; E78.5 Hyperlipidemia, unspecified; R79.89 Other specified abnormal findings of blood chemistry; F10.90 Alcohol use, unspecified, uncomplicated
CPT/HCPCS: 99214

== ENCOUNTER 2025-03-30 11:00 | Outpatient (AMB) | payer BC, SELFPAY ==
--- NOTE | 2025-03-30 11:24 | MHC.OFFVIS ---
Vital Signs 03/30/25 11:25 Height 5 ft 8 in Weight 194 lb 10.691 oz BMI 29.6 BP 120/90 H Blood Pressure Location Rt brachial Position Sitting Pulse 69 Pulse Source Pulse Oximeter Pulse Oximetry (%) 96 Oxygen Delivery Method Room Air Intake Visit Reasons: abnormal labs Intake Note: New patient presents today for abnormal labs. Accompanied by: Self / Same As Patient Allergies No Known Allergies Allergy (Verified 01/18/25 09:00) HPI HPI abnormal labs: Details: New patient visit due to positive BOBBY BOBBY 1:160 during workup for abnormal LFTs. Workup for autoimmune hepatitis and hepatitis virus panel was negative. He was dx with hepatic steotosis on US. Pain in left elbow improves with stretching elbow or taking ibuprofen 200mg. He has chest pain in sternum and bilateral shoulders. Stretching and ibuprofen PRN helps alleviate chest pain. Denies pleurisy. He does not have more pain when he palpates his chest. Feels like a superficial muscle is strained in chest. He has had cardiac workup during a ER admission in the past, which was unremarkable. He has intermittent left upper quadrant pain. He uses meloxicam 7.5 mg daily or 15 mg daily depending on his pain level. He is eating healthy with diagnosis with preDM. He has not been consistent with exercising regularly due to his long shifts 4 days a week. He has had PT for shoulder strengthening in the past. He also has been having digestive issues. He has fatigue. Weight has been stable. Eye exam in August was stable. Feels like something is in the eye. +tinnitus. He has dry nose due to the current change in weather. Denies fevers, dry eyes, dry mouth, loss of hearing, nosebleeds, oral ulcers, hoarseness, Raynaud's phenomenon, dyspnea, pleurisy, nausea, vomiting, dysphagia, urinary symptoms, rash, lymphadenopathy. He is experiencing muscle weakness with numbness and tingling. He has anxiety. Denies history of blood clots. Works in [employer] 10 hours a day 4 days a week. He does not smoke or drink alcohol. No use of recreational drugs. Father had arthritis mid 20s. ?unclear diagnosis. Medication history and medical list in expanse reviewed with patient. [facility] Medical History High blood cholesterol Sleep apnea Surgical History [place] teeth extracted Family History Mother High cholesterol Father High blood pressure Arthritis Brother High blood pressure Social History Housing: Apartment Patient Tobacco Use Status: Never used Tobacco e-Cigarette/Vaping Use: Never Used service: No Current occupational status: employed Current occupation: pest control Cognitive needs: No Hearing needs: No Vision needs: Yes (Patient wears precription glasses.) Physical Exam Exam Exam: General: Comfortable CVS: RRR Respiratory: clear to auscultation bilaterally. Good respiratory effort Skin: No lesions seen MSK: No tender joints. No synovitis. Normal range of motion of upper extremities and lower extremities. Vital Signs: Last Vital Signs Pulse 69 03/30/25 11:25 BP 120/90 H 03/30/25 11:25 Pulse Ox 96 03/30/25 11:25 Oxygen Delivery Method Room Air 03/30/25 11:25 BMI result Body Mass Index 29.6 Assessment & Plan Assessment & Plan (1) BOBBY positive: Comment: Low titer positive 1:160 without cytopenia, normal kidney function and without signs or symptoms suggestive of connective tissue disease. My clinical suspicion for connective tissue disease is low. No further workup is indicated at this time. Code(s): R76.8 - Other specified abnormal immunological findings in serum Category: Medical Plan: No further rheumatological workup is indicated Return to clinic PRN (2) Chest pain: Comment: Intermittent localized pain to his sternum improved with stretching and ibuprofen PRN. Unclear etiology. He denies pleuritic pain or increase tenderness of anterior chest during episode. Asymptomatic at this time. Code(s): R07.9 - Chest pain, unspecified Category: Medical Plan: I recommend that if he has a recurrent episode of chest pain, to contact PCP for evaluation. (3) Bilateral shoulder pain: Comment: Exam is normal. I suspect chronic rotator cuff tendinopathy is contributing. In the past he has completed physical therapy but patient is not compliant with home exercise program. Code(s): M25.511 - Pain in right shoulder; M25.512 - Pain in left shoulder Category: Medical Plan: Resume home exercise program from PT exercises learned in the past. I encouraged daily exercise routine, especially with his history of hepatic steatosis. Coding Level of Care Code New Pt Level 4 (94600) Diagnoses BOBBY positive R76.8 Chest pain R07.9 Bilateral shoulder pain M25.511; M25.512
[2025-03-30 11:25] VITALS: BP 120/90; PULSE 69; O2SAT 96; BMI 29.6
== END 2025-03-30 13:05 | disposition home or self-care (01) ==
LOC: HO.RHES 11:01
PROVIDERS: PCP Family Medicine; Visit Provider Internal Medicine Rheumatology
DX: R76.89 Other specified abnormal immunological findings in serum (principal); R07.9 Chest pain, unspecified; M25.511 Pain in right shoulder; M25.512 Pain in left shoulder
CPT/HCPCS: 99204

== ENCOUNTER 2025-04-26 08:40 | Outpatient (REF) | payer BC, SELFPAY ==
[2025-04-27 21:48] LABS: Antibody to SS-A Antigen <1.0 NEG AI (<1.0 NEG); Antibody to SS-B Antigen <1.0 NEG AI (<1.0 NEG)
[2025-05-04 19:54] LABS: CK-BB None Detected (None Detected); CK-MB 0 % (<5); CK-MM 100 % (95-100); Creatine Kinase,Total,Serum 111 U/L (26-366)
== END 2025-04-26 08:41 | disposition home or self-care (01) ==
LOC: HO.WFDLDS 08:40
PROVIDERS: Internal Medicine; PCP Family Medicine; Visit Provider Family Medicine
DX: I10 Essential (primary) hypertension (principal); R79.89 Other specified abnormal findings of blood chemistry
CPT/HCPCS: 36415; 82085; 82552; 86235

== ENCOUNTER 2025-04-26 08:40 | Outpatient (AMB) | payer BC, SELFPAY ==
--- NOTE | 2025-04-26 08:42 | A.OFFPC_ITS ---
Vital Signs 04/26/25 08:51 Height 5 ft 8 in Weight 193 lb BMI 29.3 BP 141/85 H Blood Pressure Location Rt brachial Position Sitting Respiration 16 Pulse 76 Pulse Source Pulse Oximeter Temp 98.2 F Temp Source Oral Pulse Oximetry (%) 97 Oxygen Delivery Method Room Air Intake Visit Reasons: Follow-up hypertension and review lab work Intake Note: patient here for follow up on hypertension and labs review Primary Care Sales Representative Required: No Allergies No Known Allergies Allergy (Verified 04/26/25 08:48) Medication List - Last Reconciled 04/26/25 by Hermilo Prieto MD atorvastatin 40 mg PO DAILY 90 days losartan 25 mg PO DAILY 90 days meloxicam 15 mg PO DAILY PRN Tobacco use date assessed: 04/26/25 Dental Screening Dental Screen Date: 04/26/25 Did you have a dental visit in the last 12 months?: Yes Did you have a dental problem in the last 6 months where you did not have access to dental care?: No Was dental information given to patient?: Patient has dentist [facility] Medical History High blood cholesterol Sleep apnea Surgical History [place] teeth extracted Family History Mother High cholesterol Father High blood pressure Arthritis Brother High blood pressure Social History Housing: Apartment Patient Tobacco Use Status: Never used Tobacco e-Cigarette/Vaping Use: Never Used service: No Current occupational status: employed Current occupation: pest control Cognitive needs: No Hearing needs: No Vision needs: Yes (Patient wears precription glasses.) Questionnaire Thrive Questionnaire Date Thrive assessed: 09/07/24 I am a: Patient What is your living situation today?: I have a steady place to live Within the past 12 months, did the food you bought not last and you didn't have the money to get more?: Never true Within the past 12 months, did you worry whether your food would run out before you got money to buy more?: Never true Do you have trouble paying for medicines?: No Do you have trouble getting transportation to medical appointments?: No Do you have trouble paying your heating and electricity bill?: No Do you have trouble taking care of your child, family member or friend?: No Do you have trouble with day-to-day activities such as bathing, preparing meals, shopping, managing finances, etc.?: No Are you currently unemployed and looking for a job?: No Are you interested in more education?: Yes Currently or been in a relationship where the following occur: No concerns reported THRIVE Score: 0 ISHAAN-7 AMB Questionnaire ISHAAN-7 Date ISHAAN - 7 assessed: 09/07/24 Source: Developed by Drs. Ming Draper, Marycarmen Foley, Flakito Bowen and colleagues, with an educational faraz from [employer]. Physical exam (Primary Care) Vital Signs: Last Vital Signs Temp 98.2 F 04/26/25 08:51 Pulse 76 04/26/25 08:51 Resp 16 04/26/25 08:51 BP 141/85 H 04/26/25 08:51 Pulse Ox 97 04/26/25 08:51 Oxygen Delivery Method Room Air 04/26/25 08:51 BMI result Body Mass Index 29.3 Tobacco/Smoking Status: Tobacco use Status Tobacco use date assessed 04/26/25 04/26/25 08:49 Patient Tobacco Use Status Never used Tobacco 04/26/25 08:46 e-Cigarette/Vaping Use Never Used 04/26/25 08:46 Thrive Assessment: Date of Thrive Assessment Date Thrive assessed 09/07/24 04/26/25 08:46 Currently or been in a relationship where the following occur: No concerns reported Coding Level of Care Code Est Pt Level 5 (57694) Diagnoses Hypertension, essential I10 Hyperlipidemia E78.5 Pre-diabetes R73.03 Elevated LFTs R79.89 Gas bloat syndrome K92.89 Costochondritis M94.0 Assessment & Plan Assessment & Plan (1) Hypertension, essential: Code(s): I10 - Essential (primary) hypertension Category: Medical Plan: Blood pressure is still too high. Goal is less than 140/90 Switching medication from losartan to losartan hydrochlorothiazide Hydrate well (2) Hyperlipidemia: Code(s): E78.5 - Hyperlipidemia, unspecified Category: Medical Plan: LDL cholesterol is well controlled. HDL is too low Continue atorvastatin as prescribed Increase exercise (3) Pre-diabetes: Code(s): R73.03 - Prediabetes Category: Medical Plan: A1c in mid pre diabetes range Encouraged a diet lower in sugars and starches Encouraged exercise (4) Elevated LFTs: Code(s): R79.89 - Other specified abnormal findings of blood chemistry Category: Medical Plan: Ongoing elevated LFTs Followed by Gastroenterology Hydrate well Recheck labs and follow-up with GI as recommended (5) Gas bloat syndrome: Code(s): K92.89 - Other specified diseases of the digestive system Category: Medical Plan: Left quadrants discomfort and bloating with flatulence Smaller meals and increase hydration Trial simethicone Try a symptoms diary to look for trigger foods (6) Costochondritis: Code(s): M94.0 - Chondrocostal junction syndrome [Tietze] Category: Medical Plan: Pain at chest wall which is reproducible Also has shoulder discomfort at times which is likely a tendinitis. This appears to be costochondritis Can use ibuprofen, ice/heat Can try Aspercreme topically and drive him with heat Medications: New losartan-hydrochlorothiazide 50-12.5 mg 1 tab PO DAILY 90 tabs 3RF 90 days simethicone (Gas Relief (simethicone)) 80 mg PO BID-QID PRN 90 tabs 1RF abdominal distention 30 days Discontinued losartan Discontinued Reason: Doctor's Order 25 mg PO DAILY 90 days 90 tabs 3RF
[2025-04-26 08:51] VITALS: BP 141/85; PULSE 76; RESP 16; TEMP 36.8; O2SAT 97; BMI 29.3
== END 2025-04-26 09:35 | disposition home or self-care (01) ==
LOC: HO.HMCFM 08:41
PROVIDERS: PCP Family Medicine; Visit Provider Family Medicine
DX: I10 Essential (primary) hypertension (principal); E78.5 Hyperlipidemia, unspecified; R73.03 Prediabetes; M94.0 Chondrocostal junction syndrome [Tietze]; R79.89 Other specified abnormal findings of blood chemistry; K92.89 Other specified diseases of the digestive system